=== PATIENT | female | born 1970 | race African-American/Black ===

== ENCOUNTER 2019-09-04 12:33 | Emergency (ER) | payer BC, SELFPAY ==
--- NOTE | ~2019-09-04 | XR_ITS ---
XR foot RT min 3V DATE: 09/04/2019 13:48 INDICATION: Stubbed toe 2 days ago. Right fifth toe pain. TECHNIQUE: 3 views of the right foot COMPARISON: None FINDINGS: There is a virtually nondisplaced transverse fracture of the fused middle and distal phalan x at the shaft of the middle phalanx. There is plantar and posterior calcaneal enthesopathy. No other fracture or dislocation, periosteal reaction or bone destruction. IMPRESSION: Fracture of the shaft of the middle phalanx of the fifth digit Reviewed, dictated and finalized at location A.
--- NOTE | 2019-09-04 12:56 | ED.GENADULT ---
HPI - General Adult General Chief complaint: Extremity Injury, Lower Stated complaint: Toe pain Time Seen by Provider: 09/04/19 13:11 Source: patient Mode of arrival: ambulatory Limitations: no limitations History of Present Illness HPI narrative: 49-year-old female patient presents to the [facility] with complaints of right pinky toe pain. Patient states that she stubbed her toe on her son's shoe about 2 days ago. Patient states that she tripped over the shoe. Patient states that since then the toe has been red, swollen and very painful. Patient states that she has been taking Tylenol and ibuprofen for the pain as well soaking it in warm Epson salts. Patient requesting an x-ray today. Related Data Home Medications Medication Instructions Recorded Confirmed No Home Medications 09/04/19 09/04/19 Allergies Allergy/AdvReac Type Severity Reaction Status Date / Time aspirin Allergy Intermediate CAUSES Verified 09/04/19 13:13 NOSE BLEEDS ibuprofen Allergy Intermediate Hives / Verified 09/04/19 13:13 Red Face Review of Systems Review of Systems: Narrative: CONSTITUTIONAL: Denies fever, chills, or sweats. EYES: Denies visual changes, redness, or discharge. ENT: Denies rhinorrhea, congestion, sore throat, or otalgia. CARDIOVASCULAR: Denies chest pain, palpitations, or edema. RESPIRATORY: Denies cough or dyspnea. GASTROINTESTINAL: Denies abdominal pain, nausea, vomiting, or diarrhea. GENITOURINARY: Denies dysuria or hematuria. SKIN: Denies rash or itching. MUSCULOSKELETAL: Denies back pain, joint pain, or myalgia. Positive right pinky toe pain x2 days NEUROLOGIC: Denies headache, numbness, or weakness. PSYCHIATRIC: Denies anxiety or depression. PMFSH Comments At the time of my signature I agree with nursing past medical history, surgical, social, and family history. There is no relevant family history pertinent to the presenting complaint. Exam Narrative: Exam Narrative: GENERAL: Well-appearing, well-nourished, and in no acute distress. HEAD: Normocephalic, atraumatic. EYES: PERRLA and EOMI. ENT: Nares clear, no rhinorrhea or epistaxis. Mucous membranes moist. NECK: Supple. No lymphadenopathy CHEST: Clear to auscultation. No respiratory distress. HEART: Regular rate and rhythm. No murmur heard. Normal peripheral pulses. ABDOMEN: Soft, nontender, nondistended, normal active bowel sounds. EXTREMITIES: Patient able to bear weight and ambulate but has pain to the pinky toe area on ambulation. Ecchymosis, erythema noted over the pinky toe on the right foot. No lesions, ulcers or break in skin integrity. The R foot is without obvious asymmetry or deformity when compared to the L foot. No bony step-off, tender to palpation over the right pinky toes, no tenderness over the midfoot or hindfoot or sole. Normal plantar/dorsiflexion, inversion/eversion. Distal motor and neurovascular status are intact SKIN: Warm, dry, no rash. NEURO: No focal deficits. Alert and oriented x3. Course Reevaluation(s) Reevaluation #1: Reevaluated patient after her x-ray had resulted. Notified patient that it does appear that the fifth digit at the distal end of her right foot is fractured. Discussed with patient that our plan of care today is we will elizabeth tape it and put her in an Ortho shoe. Patient refused stating that she has Ortho boots and shoes at home that she can use and does not need one here today. Offered to give patient some tramadol to help with the pain. Patient states that she does not like taking medication and will just add to the Tylenol. Discussed with patient I will give her a referral for Orth O that she can follow-up with especially if her symptoms do not appear to be getting better. Discussed with patient she should try and elevate the area and ice it and continue with patient take Tylenol for pain. Patient verbalized understanding of this and denies any other questions or concerns at this time. A copy of her x-ray resul
[2019-09-04 13:03] VITALS: BP 134/89; PULSE 80; RESP 18; TEMP 37; O2SAT 100
== END 2019-09-04 14:05 | disposition home or self-care (01) ==
PROVIDERS: Emergency Provider Nurse Practitioner Family; PCP Emergency Medicine
DX: S92.521A Displaced fracture of middle phalanx of right lesser toe(s), initial encounter for closed fracture (principal); R03.0 Elevated blood-pressure reading, without diagnosis of hypertension; W18.49XA Other slipping, tripping and stumbling without falling, initial encounter
CPT/HCPCS: 73630; 99213; G0463

== ENCOUNTER 2020-01-03 08:11 | Outpatient (CLI) | payer BC, SELFPAY ==
--- NOTE | ~2020-01-03 | MM_ITS ---
EXAMINATION: MM screening savi BI w hang HISTORY: Screening mammogram TECHNIQUE: Craniocaudal and mediolateral oblique 3-D tomosynthesis images were obtained and synthetic 2-D images were generated. CAD analysis was submitted and interpreted. COMPARISON: 12/21/2018 bilateral digital screening mammogram 09/24/2017 diagnostic left digital mammogram 09/19/2017, 09/01/2016 bilateral digital screening mammogram examinations BREAST PARENCHYMAL COMPOSITION: There are scattered areas of fibroglandular density. FINDINGS: There is no evidence of suspicious mass, calcification, or architectural distortion to sugg est malignancy in either breast. There has been no suspicious interval change. IMPRESSION: 1. No mammographic evidence of malignancy. 2. Recommend routine screening mammography in one year. BI-RADS Category 1: Negative Reviewed, dictated and finalized at location A.
== END 2020-01-03 08:12 | disposition home or self-care (01) ==
PROVIDERS: PCP Emergency Medicine; Visit Provider Obstetrics & Gynecology
DX: Z12.31 Encounter for screening mammogram for malignant neoplasm of breast (principal)
CPT/HCPCS: 77063; 77067

== ENCOUNTER 2020-01-05 15:46 | Emergency (ER) | payer BC, SELFPAY ==
--- NOTE | ~2020-01-05 | XR_ITS ---
XR toe 5th RT min 2V 01/05/2020 16:10 Indication: Right fifth toe pain Procedure: 5 views right fifth toe Comparison: 09/04/2019 Findings: There is a minimally displaced extra-articular fracture right fifth proximal phalanx. Mild soft tissue swelling. No other fracture is identified. Small degenerative calcaneal enthesophytes. Impression: 1: Minimally displaced extra-articular fracture right fifth proximal phalanx. Reviewed, dictated and finalized at location A. Impression: 1: Minimally displaced extra-articular fracture right fifth proximal phalanx.
[2020-01-05 15:50] VITALS: BP 140/89; PULSE 79; RESP 16; TEMP 36.5; O2SAT 100
--- NOTE | 2020-01-05 15:52 | ED.GENADULT ---
HPI - General Adult General Chief complaint: Extremity Injury, Lower Stated complaint: rt foot pinkie toe injury Time Seen by Provider: 01/05/20 15:52 Source: patient Mode of arrival: ambulatory Limitations: no limitations History of Present Illness HPI narrative: 49-year-old female patient presents to the [facility] with complaints of right pinky toe pain. Patient states that she fractured this toe back in July of this year. Patient states it was starting to feel better however she accidentally hit her cat tree yesterday. Patient states there is been very painful, swollen, red. Patient states she did ice it as well soaking and Epson salt and has been taking Tylenol for the pain. Patient states that she is concerned that she might of broken it again. Patient states she did have a boot that she was wearing with her last fracture but states that she got rid of it no longer has the boot available at this time. Related Data Home Medications Medication Instructions Recorded Confirmed No Home Medications 09/04/19 01/05/20 Allergies Allergy/AdvReac Type Severity Reaction Status Date / Time aspirin Allergy Intermediate CAUSES Verified 01/05/20 15:48 NOSE BLEEDS Review of Systems Review of Systems: Narrative: CONSTITUTIONAL: Denies fever, chills, or sweats. EYES: Denies visual changes, redness, or discharge. ENT: Denies rhinorrhea, congestion, sore throat, or otalgia. CARDIOVASCULAR: Denies chest pain, palpitations, or edema. RESPIRATORY: Denies cough or dyspnea. GASTROINTESTINAL: Denies abdominal pain, nausea, vomiting, or diarrhea. GENITOURINARY: Denies dysuria or hematuria. SKIN: Denies rash or itching. MUSCULOSKELETAL: Denies back pain, joint pain, or myalgia. Positive right pinky toe pain NEUROLOGIC: Denies headache, numbness, or weakness. PSYCHIATRIC: Denies anxiety or depression. [facility] Past Medical History Medical History (Updated 01/05/20 @ 16:29 by EYAD Barron) Anemia Anxiety Arthritis Bipolar disorder Depression Fibroids GERD (gastroesophageal reflux disease) Gestational hypertension Preeclampsia Surgical History Surgical History (Updated 01/05/20 @ 15:53 by EYAD Barron) H/O: hysterectomy Hx of tonsillectomy Comments At the time of my signature I agree with nursing past medical history, surgical, social, and family history. There is no relevant family history pertinent to the presenting complaint. Exam Narrative: Exam Narrative: GENERAL: Well-appearing, well-nourished, and in no acute distress. HEAD: Normocephalic, atraumatic. EYES: PERRLA and EOMI. ENT: Nares clear, no rhinorrhea or epistaxis. Mucous membranes moist. NECK: Supple. No lymphadenopathy CHEST: Clear to auscultation. No respiratory distress. HEART: Regular rate and rhythm. No murmur heard. Normal peripheral pulses. ABDOMEN: Soft, nontender, nondistended, normal active bowel sounds. EXTREMITIES: Patient able to bear weight and ambulate with increased pain to the right digit on the right foot. There is some swelling, ecchymosis and redness noted to the right pinky toe into the fifth metatarsal, no erythema, lesions, ulcers or break in skin integrity. The R foot is without obvious asymmetry or deformity when compared to the L foot. No bony step-off, tender to palpation over the right pinky toes, no tenderness to the midfoot or hindfoot or sole. Normal plantar/dorsiflexion, inversion/eversion. Distal motor and neurovascular status are intact SKIN: Warm, dry, no rash. NEURO: No focal deficits. Alert and oriented x3. Course Reevaluation(s) Reevaluation #1: Reevaluated patient after x-ray resulted. Discussed with her that she does have a fracture to the pinky toe. Discussed with her and will go ahead and refer her to Ortho she would like to follow-up with them. Discussed with her that she can also follow-up with her primary doctor she wants to as well. Discussed with her we will go ahead and put her in an order so
== END 2020-01-05 16:39 | disposition home or self-care (01) ==
PROVIDERS: Emergency Provider Nurse Practitioner Family; PCP Emergency Medicine
DX: S92.501A Displaced unspecified fracture of right lesser toe(s), initial encounter for closed fracture (principal); W22.8XXA Striking against or struck by other objects, initial encounter
CPT/HCPCS: 73660; 99214; G0463

== ENCOUNTER 2021-07-07 09:26 | Outpatient (CLI) | payer BC, SELFPAY ==
--- NOTE | ~2021-07-07 | XR_ITS ---
EXAMINATION: XR knee RT 2V DATE: 07/07/2021 09:57 INDICATION: Right knee pain TECHNIQUE: Two views of the right knee were obtained. COMPARISON: None. FINDINGS: Alignment is normal. No fracture or osteochondral lesion. There is mild tricompartmental os teoarthritis characterized by tiny marginal osteophytes. No joint effusion/synovitis. Soft tissues a re unremarkable. IMPRESSION: 1. No acute osseous abnormality. Reviewed, dictated and finalized at location B.
--- NOTE | ~2021-07-07 | XR_ITS ---
XR knee LT 2V 07/07/2021 09:57 INDICATION: Left knee pain PROCEDURE: 2 views left knee COMPARISON: No prior studies for comparison. FINDINGS: Fracture, dislocation or subluxation is not identified. The soft tissues appear within norm al limits. No foreign bodies are identified. IMPRESSION: 1: NO ACUTE BONE OR JOINT ABNORMALITY IDENTIFIED. Reviewed, dictated and finalized at location A.
== END 2021-07-07 09:27 ==
LOC: MICIMG 09:27
PROVIDERS: PCP Emergency Medicine; Visit Provider Emergency Medicine
DX: M25.569 Pain in unspecified knee (principal)
CPT/HCPCS: 73560

== ENCOUNTER → 2022-01-28 09:56 | Outpatient (CLI) | payer BC, SELFPAY ==
--- NOTE | ~2022-01-28 | MM_ITS ---
EXAMINATION: MM screening savi BI w hang HISTORY: Screening TECHNIQUE: Craniocaudal and mediolateral oblique 3-D tomosynthesis images were obtained and synthetic 2-D images were generated. CAD analysis was submitted and interpreted. COMPARISON: Comparison to multiple prior studies sequentially, with oldest reviewed study dated 08/13. BREAST PARENCHYMAL COMPOSITION: There are scattered areas of fibroglandular density. FINDINGS: There is no evidence of suspicious mass, calcification, or architectural distortion to sugg est malignancy in either breast. There has been no suspicious interval change. IMPRESSION: 1. No mammographic evidence of malignancy. 2. Recommend routine screening mammography in one year. BI-RADS Category 1: Negative Reviewed, dictated and finalized at location A.
== END ==
PROVIDERS: PCP Obstetrics & Gynecology; Visit Provider Obstetrics & Gynecology
DX: Z12.31 Encounter for screening mammogram for malignant neoplasm of breast (principal)
CPT/HCPCS: 77063; 77067

== ENCOUNTER 2023-02-28 11:56 | Observation (INO) | payer BC, SELFPAY ==
[2023-02-28] VITALS (7 sets, daily range): BP systolic 133–187; BP diastolic 81–112; PULSE 71–89; RESP 9–18; TEMP 36.2–36.4; O2SAT 98–100; BMI 40.0
--- NOTE | ~2023-02-28 | MR_ITS ---
MRI of the brain Clinical History: TIA Technique: Axial and sagittal T1-weighted images were acquired. These were followed by axial T2-weigh sierra, diffusion weighted, gradient, and FLAIR images. Following intravenous administration of 20 cc Mu ltiHance gadolinium, T1-weighted fat-sat imaging was performed in the axial and coronal planes. Findings: There is no abnormal signal in the brain parenchyma. No acute infarct, intracranial hemorrh age, or mass lesion. Ventricles and subarachnoid spaces are unremarkable. Orbits are unremarkable. Paranasal sinuses and m astoid air cells are clear. Major intracranial flow voids appear intact. Sagittal midline structures are intact. No abnormal postcontrast enhancement identified. IMPRESSION: Unremarkable exam. Reviewed, dictated and finalized at location M. REP IMPRESSION: Unremarkable exam.
--- NOTE | ~2023-02-28 | XR_ITS ---
XR chest 2V DATE: 02/28/2023 12:44 INDICATION: Weakness. Not feeling right. Hypertension. Visual impairment. TECHNIQUE: AP and lateral views COMPARISON: 08/05/2013 PA and lateral chest FINDINGS: Probable calcified pulmonary granuloma of right mid lung on AP view. The lungs are clear of infiltrate or consolidation. No pleural effusion or pulmonary vascular congestion or pneumothorax. Normal heart size. Mild aortic unfolding. No hilar or mediastinal enlargement. Mild thoracic levoscoliosis. Surgical clips, right upper quadrant, likely due to cholecystectomy. IMPRESSION: No active cardiopulmonary disease Reviewed, dictated and finalized at location B. ION STYLIST
--- NOTE | ~2023-02-28 | CT_ITS ---
EXAMINATION: CT brain wo con DATE: 02/28/2023 15:59 INDICATION: Strokelike symptoms. Spots in vision. TECHNIQUE: Computed tomography (CT) of the head was performed without intravenous contrast. The mA wa s adjusted according to patient size. Iterative reconstruction technique was employed. The dose-lengt h product was 605.33 mGy-cm. COMPARISON: None FINDINGS: There is no intracranial hemorrhage, acute infarction, or abnormal intracranial mass lesion . The ventricles are normal in size. The paranasal sinuses are clear. The mastoid air cells are mandeep l. IMPRESSION: 1. Normal brain. Reviewed, dictated and finalized at location A. DING ASSOCIATE IMPRESSION: 1. Normal brain.
--- NOTE | ~2023-02-28 | CT_ITS ---
EXAMINATION: CTA brain carotid DATE: 02/28/2023 18:08 INDICATION: visual changes TECHNIQUE: Computed tomographic angiography (CTA) of the head and neck was performed without and with 100 mL Omnipaque-350 intravenous contrast. CTA of the neck was performed with intravenous contrast. Automated exposure control and iterative reconstruction technique were employed. The dose-length prod uct was 1168.09 mGy-cm. Maximum intensity projection and volume rendered 3D-reconstructions were crea s[place] by the technologist on a separate workstation. COMPARISON: CT brain, same date. FINDINGS: CTA HEAD: No large vessel occlusion, aneurysm, high flow vascular malformation, nidus or extravasation. Hypopla stic left A1/A2 segments. Dominant anterior cerebral flow is from the right sided vessels. Persistent origin of the right posterior cerebral artery. Patent cerebral veins. Symmetric parenchymal en hancement. CTA NECK: Aortic arch and proximal great vessels: Left vertebral artery origin directly off the arch. Otherwise normal arch anatomy. Right common carotid, carotid bifurcation, and internal carotid artery: No plaque.There is 0% stenosi s of the proximal right internal carotid artery relative to normal distal artery lumen diameter (NASC ET criteria). Left common carotid, carotid bifurcation, and internal carotid artery: No plaque.There is 0% stenosis of the proximal left internal carotid artery relative to normal distal artery lumen diameter (NASCET criteria). Vertebral arteries: No significant plaque or stenosis. Other findings: None. IMPRESSION: No large vessel occlusion. No significant carotid or vertebral artery stenosis. Reviewed, dictated and finalized at location K. [employer]
--- NOTE | 2023-02-28 12:01 | ECG_ITS ---
Measurements Intervals [place] Rate: 74 P: 9 IA: 160 QRS: -12 QRSD: 81 T: 15 QT: 372 QTc: 413 Interpretive Statements SINUS RHYTHM LOW QRS VOLTAGE IN PRECORDIAL LEADS BORDERLINE R WAVE PROGRESSION, ANTERIOR LEADS BASELINE ARTIFACT- I, III, AVL BORDERLINE ECG NO PREVIOUS ECG AVAILABLE FOR COMPARISON Electronically Signed On 02-28-2023 12:15:15 PROPERTY CONDITION ASSESSOR by Alber Dietrich D.O.
[2023-02-28 12:20] LABS: Basophils Absolute Auto 0.1 K/mm3 (0.0-0.1); Basophils Percent Auto 1.1 % (0.2-1.2); Eosinophils Absolute Auto 0.1 K/mm3 (0-0.3); Eosinophils Percent Auto 2.8 % (0-4.4); Hematocrit 43.6 % (37.0-47.0); Hemoglobin 14.5 g/dL (12.0-15.0); Immature Granulocyte Absolute 0.01 K/mm3 (0.00-0.031); Immature Granulocyte Percent A 0.2 % (0-0.5); Lymphocytes Absolute Auto 2.04 K/mm3 (0.9-3.2); Lymphocytes Percent Auto 46.8 % (18.3-44.2); Mean Corpuscular HGB Conc 33.3 g/dl (32-36); Mean Corpuscular Hemoglobin 30.1 pg (26-34); Mean Corpuscular Volume 90.6 fl (80-100); Mean Platelet Volume 10.7 fl (7.4-10.4); Monocytes Absolute Auto 0.4 K/mm3 (0.1-0.6); Monocytes Percent Auto 8.3 % (2.6-8.5); Neutrophils Absolute Auto 1.8 K/mm3 (1.3-6.7); Neutrophils Percent Auto 40.8 % (45.5-73.1); Platelet Count Result 229 k/mm3 (150-375); Red Blood Count 4.81 M/mm3 (4.2-5.4); Red Cell Distribution Width 12.5 % (11.5-14.5); White Blood Count 4.4 K/mm3 (4.5-10.0)
[2023-02-28 12:26] LABS: Appearance Urine Cloudy (Clear); Bacteria Urine None Seen /hpf; Bilirubin Urine Negative (Negative); Blood Urine Negative (Negative); Color Urine Yellow (Yellow); Glucose Urine UA Negative (Negative); Ketones Urine Negative (Negative); Leukocyte Esterase Ur Negative LEU/UL (Negative); Nitrate Urine Negative (Negative); Non Pathogenic Casts 0-2; Protein Urine Negative (Negative); RBC Urine 0-2 /hpf (0-2); Specific Grav Ur 1.016 (1.001-1.035); Squamous Epithelial Cell Urine None seen /hpf (Few); Urobilinogen Urine 0.2 mg/dL (<2.0); WBC Urine 0-5 /hpf
[2023-02-28 12:29] LABS: Add Urine Microscopic? YES
[2023-02-28 12:32] LABS: Alanine Aminotransferase 36 U/L (6-35); Albumin Level 4.6 g/dL (3.5-5.1); Alkaline Phosphatase 105 U/L (38-126); Anion Gap 12 mmol/L (8-16); Aspartate Amino Transferase 35 U/L (14-36); Bilirubin,Total 1.3 mg/dL (0.2-1.3); Blood Urea Nitrogen 9 mg/dL (7-17); Calcium 10.1 mg/dL (8.4-10.2); Carbon Dioxide 26 mmol/L (22-30); Chloride 104 mmol/L (98-107); Estimated CRCL calculation 94 ml/min; Estimated Glomerular Filt Rate > 60; Glucose 86 mg/dL (65-110); Potassium 3.9 mmol/L (3.4-5.0); Sodium 142 mmol/L (137-145)
[2023-02-28 12:44] LABS: Troponin I < 0.012 ng/mL (0.000-0.034)
--- NOTE | 2023-02-28 16:38 | ED.GENADULT ---
HPI - General Adult General Chief complaint: Recheck/Abnormal Lab/Rx Stated complaint: htn Time Seen by Provider: 02/28/23 15:29 History of Present Illness HPI narrative: Patient is a 52-year-old female who presents ER with concerns for stroke-like symptoms. 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 Associated with difficulty writing and with making sense of math problems. She had to stop her class after the kids are asking what was going on and what was wrong. The nurse at her school found that her blood pressure was significantly elevated recommend she come to the ER to be seen. Patient reports visual disruption occurred for 2 hours. She is now resting comfortably and has no symptoms. She did not notice any lateralizing weakness or slurred speech. Related Data Home Medications Medication Instructions Recorded Confirmed No Home Medications 09/04/19 01/26/20 Allergies Allergy/AdvReac Type Severity Reaction Status Date / Time aspirin Allergy Intermediate CAUSES Verified 01/26/20 10:49 NOSE BLEEDS Review of Systems Review of Systems: All systems reviewed & are unremarkable except as noted in HPI and below Constitutional: Constitutional: Denies chills, Denies fatigue and Denies fever(s) Eyes: Eyes: Reports change in vision and Denies photophobia ENT: Denies nasal congestion and Denies sore throat Cardiovascular: Cardiovascular: Denies chest pain, Denies rapid heart rate and Denies radiating jaw, neck or arm pain Respiratory: Respiratory: Denies cough and Denies dyspnea Gastrointestinal: Gastrointestinal: Denies abdominal pain, Denies nausea and Denies vomiting Neurologic: Denies syncope, Denies headache(s), Denies focal weakness and Denies numbness Comments: Difficulty writing in thinking. [facility] Past Medical History Medical History Anemia Anxiety Arthritis Bipolar disorder Depression Fibroids GERD (gastroesophageal reflux disease) Gestational hypertension Preeclampsia Surgical History Surgical History H/O: hysterectomy (~2014) Hx of tonsillectomy Family History Family History Father Cancer Mother Arthritis Heart disease Exam Narrative: GENERAL: Well-appearing, well-nourished, and in no acute distress. HEAD: Normocephalic, atraumatic. EYES: PERRL and EOMI. ENT: Mucous membranes moist. CHEST: Clear to auscultation. No respiratory distress. HEART: Regular rate and rhythm. Normal peripheral pulses. ABDOMEN: Soft, nontender, nondistended. EXTREMITIES: Normal range of motion. No edema. SKIN: Warm, dry, no rash. NEURO: No upper or lower extremity drift. Cranial nerves symmetric Alert and oriented x3. PSYCH: Normal mood and affect. Course Course Emergency Course: Patient resting comfortably. Neurology consulted. Admit for observation and MRI. CTA without abnormality. Patient's blood pressures have been markedly improved while in the ER without intervention. Vital Signs Vital signs: Vital Signs Temperature 97.6 F 02/28/23 11:57 Pulse Rate 89 02/28/23 11:57 Respiratory Rate 16 02/28/23 11:57 Blood Pressure 187/112 H 02/28/23 11:57 Pulse Oximetry 100 02/28/23 11:57 Oxygen Delivery Room Air 02/28/23 11:57 Temperature 97.6 F 02/28/23 11:57 Pulse Rate 74 02/28/23 17:15 Respiratory Rate 17 02/28/23 17:15 Blood Pressure 145/94 H 02/28/23 17:15 Pulse Oximetry 99 02/28/23 17:15 Oxygen Delivery Room Air 02/28/23 11:57 Medical Decision Making Vital Signs Vital Signs: Vital Signs Temperature 97.6 F 02/28/23 11:57 Pulse Rate 89 02/28/23 11:57 Respiratory Rate 16 02/28/23 11:57 Blood Pressure 187/112 H 02/28/23 11:57 Pulse Oximetry 100 02/28/23 11:57 Oxygen D
--- NOTE | 2023-02-28 20:53 | PM.IMHP ---
H&P: HPI History of Present Illness Date/Time: 02/28/23 20:53 Chief Complaint: AMS Narrative: Chronic anemia, bipolar disorder, depression, fibroids, GERD gestational hypertension, preeclampsia. Patient presents to the emergency room after having episode of word-finding disturbance, altered mental status, denies vision changes headache lightheadedness. Patient has been her usual state of health up until this moment denies any focal weakness. Preliminary workup was significant for blood pressure upon presentation to emergency room systolic was in the 187/112. At the time of my visit patient was back to her usual. Preliminary workup has been essentially nonrevealing otherwise. Patient has been admitted for further evaluation management and treatment. EXAMINATION: CTA brain carotid DATE: 02/28/2023 18:08 INDICATION: visual changes TECHNIQUE: Computed tomographic angiography (CTA) of the head and neck was performed without and with 100 mL Omnipaque-350 intravenous contrast. CTA of the neck was performed with intravenous contrast. Automated exposure control and iterative reconstruction technique were employed. The dose-length product was 1168.09 mGy-cm. Maximum intensity projection and volume rendered 3D-reconstructions were created by the technologist on a separate workstation. COMPARISON: CT brain, same date. FINDINGS: CTA HEAD: No large vessel occlusion, aneurysm, high flow vascular malformation, nidus or extravasation. Hypoplastic left A1/A2 segments. Dominant anterior cerebral flow is from the right sided vessels. Persistent origin of the right posterior cerebral artery. Patent cerebral veins. Symmetric parenchymal enhancement. CTA NECK: Aortic arch and proximal great vessels: Left vertebral artery origin directly off the arch. Otherwise normal arch anatomy. Right common carotid, carotid bifurcation, and internal carotid artery: No plaque.There is 0% stenosis of the proximal right internal carotid artery relative to normal distal artery lumen diameter (NASCET criteria).? Left common carotid, carotid bifurcation, and internal carotid artery: No plaque.There is 0% stenosis of the proximal left internal carotid artery relative to normal distal artery lumen diameter (NASCET criteria). Vertebral arteries: No significant plaque or stenosis. Other findings: None. IMPRESSION: No large vessel occlusion. No significant carotid or vertebral artery stenosis. EXAMINATION: CT brain wo con DATE: 02/28/2023 15:59 INDICATION: Strokelike symptoms. Spots in vision. TECHNIQUE: Computed tomography (CT) of the head was performed without intravenous contrast. The mA was adjusted according to patient size. Iterative reconstruction technique was employed. The dose-length product was 605.33 mGy-cm. COMPARISON: None FINDINGS: There is no intracranial hemorrhage, acute infarction, or abnormal intracranial mass lesion. The ventricles are normal in size. The paranasal sinuses are clear. The mastoid air cells are normal. IMPRESSION: 1. Normal brain. XR chest 2V DATE: 02/28/2023 12:44 INDICATION: Weakness. Not feeling right. Hypertension. Visual impairment.? TECHNIQUE: AP and lateral views? COMPARISON: 08/05/2013 PA and lateral chest? FINDINGS: Probable calcified pulmonary granuloma of right mid lung on AP view. The lungs are clear of infiltrate or consolidation. No pleural effusion or pulmonary vascular congestion or pneumothorax. Normal heart size. Mild aortic unfolding. No hilar or mediastinal enlargement. Mild thoracic levoscoliosis. Surgical clips, right upper quadrant, likely due to cholecystectomy. IMPRESSION: No active cardiopulmonary disease? Review of Systems Review of Systems: speech disturbance, change in vision. Constitutional: Constitutional: Denies chills, Denies fatigue, Denies fever(s), Denies malaise and Denies weakness Eyes: Eyes: Denies change in vision ENT: Denies dysphagia,
--- NOTE | 2023-02-28 21:32 | ADMGEN ---
This patient, Tomasa Mcnair, was admitted to Medical Room 348-01. Patient/family oriented to hospital policies and general routines including ID bracelet, bed and alarms, visiting hours, pain management, procedures, bathroom and other care routines, personal items, smoking policy, room service/diet, and visiting hours. Information on how to activate the Rapid Response Team has been discussed. Patient/Family are encouraged to report perceived risks to care and to ask questions if they do not understand what they are told or what they should do.
[2023-03-01] VITALS (7 sets, daily range): BP systolic 131–143; BP diastolic 85–92; PULSE 66–85; RESP 16–18; TEMP 36.3–37.3; O2SAT 98–99
[2023-03-01] MEDS: ACETAMINOPHEN 325 MG TABLET 650 MG PO (04:49)
[2023-03-01] MEDS: LORazepam INJ (*CRX) 2 MG/ML VIAL 1 MG IV PUSH (07:20)
--- NOTE | 2023-03-01 10:59 | WPDNEURCNPN ---
Assessment and Plan Assessment and plan (1) Brain TIA: Code(s): G45.9 - Transient cerebral ischemic attack, unspecified Status: Acute (2) Hypertensive urgency: Code(s): I16.0 - Hypertensive urgency Status: Acute Plan Patient presenting with transient visual changes and confusion in the setting of elevated blood pressue, likely hypertensive emergency vs TIA. MRI brain is normal. Blood pressure has been more stable since admission. - Surface echocardiogram is pending - Start ASA 81mg daily - Check LDL and A1c; may need to start statin Consult date: 03/01/23 Reason for consult: Concern for TIA HPI: Tomasa Mcnair is a 52 year old female with a history of anxiety, depression, bipolar disorder presenting due to transient neurological symptoms. On 12/29 around 0930, patient developed colored spots in bilateral vision. She was teaching during class and also noted that she was having difficulty writing and making sense of math problems. She went to the school nurse who noted that her blood pressure was quite elevated, although unclear how high. Patient presented to [place] ED where her BP was initially 187/112. Blood pressure came down without any intervention and her symptoms eventually resolved. CT head and CTA brain/carotid were unrevealing. MRI brain was normal. She does not take any home medications. Patient currently feels okay. She does not feel 100% like herself, but denies having any of the symptoms that brought her in yesterday. Review of Systems Review of Systems: All systems reviewed & are unremarkable except as noted in HPI and below PMFSH Past Medical History Medical History Anemia Anxiety Arthritis Bipolar disorder Depression Fibroids GERD (gastroesophageal reflux disease) Gestational hypertension Preeclampsia Surgical History Surgical History H/O: hysterectomy (~2014) Hx of tonsillectomy Family History Family History Father Cancer Mother Arthritis Heart disease Social History Social History Smoking status: Never smoker Alcohol intake: current Substance use: never Substance use type: does not use Lack of Transportation: No Lack of Food: Never True Current Housing: I Have Housing Concerned About Future Housing: No Difficulty Paying Gas/Electric Bills: No Difficulty Paying for Meds: No Currently Unemployed: No Education: Bachelor's Degree Difficulty w/ Childcare or Family Care: No Spiritual care concerns: No Meds Home Medications and Allergies Home Medications Medication Instructions Recorded Confirmed Type No Home Medications 09/04/19 02/28/23 History Allergies Allergy/AdvReac Type Severity Reaction Status Date / Time aspirin Allergy Nose Bleed Verified 03/01/23 08:36 Vital Signs Vital Signs - 24 hr 02/28/23 11:57 02/28/23 16:07 02/28/23 16:16 Temperature 36.4 C Pulse Rate 89 72 71 Respiratory Rate 16 9 L 12 Blood Pressure 187/112 H 136/106 H 152/103 H Pulse Oximetry 100 100 98 Oxygen Delivery Room Air 02/28/23 17:15 02/28/23 17:30 02/28/23 19:35 Temperature Pulse Rate 74 79 77 Respiratory Rate 17 17 12 Blood Pressure 145/94 H 133/94 H 145/100 H Pulse Oximetry 99 99 100 Oxygen Delivery 02/28/23 22:31 03/01/23 00:00 03/01/23 04:00 Temperature 36.2 C L Pulse Rate 71 71 66 Respiratory Rate 18 Blood Pressure 152/81 H Pulse Oximetry 99 Oxygen Delivery 03/01/23 06:00 Temperature 36.3 C L Pulse Rate 79 Respiratory Rate 18 Blood Pressure 143/86 H Pulse Oximetry 98 Oxygen Delivery Exam Const: General: comfortable and no acute distress HENMT: Mouth: Yes moist mucous membranes Eyes: Pupils: Equal, round and reactive pupils present EOM: EOMs intact bilater
--- NOTE | 2023-03-01 12:00 | ECHO_ITS ---
Patient Info Name: Tomasa Mcnair Age: 52 years : 1970 Gender: Female Ht: 67 in Wt: 255 lbs BSA: 2.39 m2 HR: 86 bpm BP: 143 / 86 mmHg Technical Quality: Fair Exam Date: 03/01/2023 11:40 AM Exam Location: Echo Lab Exam Room: [facility] Patient Status: Outpatient Admit Date: 02/28/2023 Staff Ordering Physician: Lorin Corey APRN Organic Chemistry Professor: Nimco Gutierrez RDCS Attending Provider: Bambi Prasad DO Referring Physician: Leora MONSALVE; Exam Type: CA echo doppler w bubble study Study Info Indications - TIA R/O CSE Complete two-dimensional, color flow and Doppler transthoracic echocardiogram is performed with agitated saline. Contrast/Agitated Saline Contrast/Ag. Saline: Agitated Saline Amount: 20.00 ml Existing IV Access: Yes IV Access Condition: patent with no signs of infiltration Summary 1. Normal left ventricular size and thickness with good contractility of all segments. Estimated ejection fraction 65-70%. Normal diastolic function. 2. No significant valve disease. 3. Bubble study negative for intracardiac shunting during normal respiration and Valsalva maneuver. 4. Normal sinus rhythm. Left Ventricle Left ventricular chamber dimension is normal. Left ventricular systolic function is normal, estimated at Empty. There is no increased left ventricular wall thickness. Left ventricular septal wall motion is normal. The left ventricular diastolic function is normal. Right Ventricle Right ventricular chamber dimension is normal. Right ventricular systolic function is normal. Left Atria Left atrial chamber dimension is normal. Right Atria Right atrial chamber dimension is normal. Aortic Valve The aortic valve is trileaflet. There is no aortic valve sclerosis. There is no aortic valve stenosis. There is no aortic valve regurgitation. Pulmonic Valve The pulmonic valve is normal. There is no pulmonic valve stenosis. There is no pulmonic regurgitation. Mitral Valve The mitral valve has normal leaflets. There is no mitral valve stenosis. There is trace mitral valve regurgitation. Tricuspid Valve The tricuspid valve leaflets are normal. There is no significant tricuspid valve stenosis. There is trace tricuspid valve regurgitation. No pulmonary hypertension, estimated pulmonary arterial systolic pressure is Empty. Pericardium/Pleural The pericardium appears normal. There is no pericardial effusion. Inferior Vena Cava Normal inferior vena cava with >50% collapse upon inspiration consistent with Empty right atrial pressure, Empty. Aorta The aortic root size at the sinus of Valsalva is normal. The prox ascending aorta size is normal. Left Ventricular Outflow Tract Name Value Normal LVOT 2D LVOT Diameter 2.0 cm LVOT Doppler LVOT Peak Gradient 5 mmHg LVOT Mean Gradient 4 mmHg LVOT VTI 22 cm LVOT VTI/AV VTI Ratio 1.1 LVOT Stroke Volume 70 ml LVOT CO 17.9 l/min LVOT CI 7.5 l/min/m2 Pulmonic V
--- NOTE | 2023-03-01 15:38 | PM.IMPN ---
Progress Note: A&P Assessment and Plan (1) Brain TIA: Code(s): G45.9 - Transient cerebral ischemic attack, unspecified Status: Acute Assessment and Plan: Acute visual changes, headache, dizziness, nausea, and inability to preform standard, simple tasks Neurology consulted and recommendations are appreciated Brain MRI, CT head, CTA head and neck all negative Echo with bubble study pending read Add on lipid panel and hemoglobin A1c Start on aspirin 81 mg per Neurology May need statin depending on lipid panel (2) Hypertensive urgency: Code(s): I16.0 - Hypertensive urgency Status: Acute Assessment and Plan: Blood pressure 180s over 100s when checked by the school nurse and on admission. Blood pressures decreased without intervention Currently ranging 140s over 90s Suspect symptoms from hypertensive emergency Will start a low-dose amlodipine 5 mg daily On telemetry Patient will need PCP follow-up Plan Feeding:regular Analgesia:tylenol Thromboembolic prophylaxis: scd Ulcer prophylaxis: na Glycemic control: na Bowel regimen: na Lines: piv Antibiotics:na Disposition: likely d/c tomorrow if okay with neuro Subjective Date/time seen: 03/01/23 15:38 Interval history: This is a 52-year-old female with a past medical history of anxiety, bipolar disorder, depression, GERD, and anemia. She presented to [place] on 02/28 via personal car to be evaluated for dizziness and visual changes. 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 She says that whenever she would sit down the dizziness would slightly subsided but the vision changes remained. She describes the episode as feeling foggy. She also had some pressure at the back of her neck and head and shoulders. She said she was having difficulty doing simple calculations and writing on the board. The aide in her room noticed something was wrong and had her go to the nurse's office. Per the patient the nurse checked her blood pressure and was found to find high blood pressure of 180s over 100s. She says that she has had a similar episode like this at the end of last school year. The night prior she had had some corn dogs and hot dogs which sometimes make her feel poorly the following day. She says that her PCP has tried to put her on medications for her blood pressure in the past but they caused her added symptoms and so she is not keen on taking them. She is unsure of the name of the blood pressure medications for which she tried. She reports that she had preeclampsia with one of her pregnancies and a batchmaker recommended a tea which controlled her blood pressure allowing her to deliver at full term. She would prefer to use nonpharmacologic measures if able. I discussed with her the risks associated with uncontrolled hypertension including stroke, heart attack, and kidney disease. She is agreeable to start on a blood pressure medication but she mentions if there are side effects she will not continue with it. In the ED her labs were essentially normal. When she 1st presented her blood pressure was 187/112 and it decreased without intervention to 136/106 after a 4 hour. Neurology was consulted for concerns for potential TIA versus hypertensive emergency. Head and neck CTA was negative for large vessel occlusion and no significant carotid or vertebral artery stenosis. Brain MRI was essentially normal. CT head negative for acute stroke. I have ordered an echo with bubble study which is pending. Also added on a lipid and hemoglobin A1c panel. Patient to remain overnight for observation and likely will discharge home tomorrow. Review of Systems Review of Systems: All systems reviewed & are unremarkable except as noted in HPI and below Exam Narrative: General: well appearing, well developed, well nourished, appears stat
[2023-03-01] MEDS: ASPIRIN 81 MG ENTERIC TABLET PO (17:22)
--- NOTE | 2023-03-01 18:29 | PC.NURSE ---
Aspirin was prescribed for patient. It is listed as an allergy. [place] Setter spoke with patient before administration and she states her reaction was a nose bleed and that was many years ago. She stated she spoke with neurology and they told her this is a low dose aspirin so she is willing to give it a try.
[2023-03-01 21:11] LABS: Cholesterol 247 mg/dL (0-200); HDL Direct 32 mg/dL; Triglycerides 168 mg/dL (<150)
[2023-03-01 21:21] LABS: LDL Cholesterol Direct 171 mg/dL
[2023-03-01 21:23] LABS: Hemoglobin A1C 5.3 % (<5.7)
[2023-03-02] VITALS: PULSE 70
[2023-03-02 04:00] VITALS: PULSE 71
[2023-03-02 05:40] VITALS: BP 118/80; PULSE 72; RESP 18; TEMP 36.3; O2SAT 99
[2023-03-02 05:47] LABS: Eosinophils Absolute Auto 0.1 K/mm3 (0-0.3); Eosinophils Percent Auto 3.4 % (0-4.4); Hematocrit 40.8 % (37.0-47.0); Hemoglobin 13.5 g/dL (12.0-15.0); Lymphocytes Absolute Auto 1.73 K/mm3 (0.9-3.2); Lymphocytes Percent Auto 44.6 % (18.3-44.2); Mean Corpuscular HGB Conc 33.1 g/dl (32-36); Mean Corpuscular Volume 90.7 fl (80-100); Mean Platelet Volume 10.4 fl (7.4-10.4); Monocytes Absolute Auto 0.3 K/mm3 (0.1-0.6); Monocytes Percent Auto 7.7 % (2.6-8.5); Neutrophils Absolute Auto 1.7 K/mm3 (1.3-6.7); Neutrophils Percent Auto 43.3 % (45.5-73.1); Platelet Count Result 199 k/mm3 (150-375); Red Cell Distribution Width 12.4 % (11.5-14.5); White Blood Count 3.9 K/mm3 (4.5-10.0)
[2023-03-02 06:00] LABS: Alanine Aminotransferase 29 U/L (6-35); Alkaline Phosphatase 89 U/L (38-126); Anion Gap 7 mmol/L (8-16); Aspartate Amino Transferase 26 U/L (14-36); Bilirubin,Total 1.1 mg/dL (0.2-1.3); Blood Urea Nitrogen 11 mg/dL (7-17); Calcium 9.7 mg/dL (8.4-10.2); Carbon Dioxide 27 mmol/L (22-30); Chloride 104 mmol/L (98-107); Cholesterol 242 mg/dL (0-200); Estimated CRCL calculation 76 ml/min; Estimated Glomerular Filt Rate > 60; Glucose 97 mg/dL (65-110); HDL Direct 32 mg/dL; Magnesium 2.1 mg/dL (1.6-2.3); Sodium 138 mmol/L (137-145); Triglycerides 119 mg/dL (<150)
[2023-03-02 06:11] LABS: LDL Cholesterol Direct 171 mg/dL
[2023-03-02 08:00] VITALS: PULSE 71
[2023-03-02 08:55] VITALS: BP 142/89
[2023-03-02] MEDS: amLODIPine BESYLATE 5 MG TABLET PO (08:55)
[2023-03-02] MEDS: ASPIRIN 81 MG ENTERIC TABLET PO (08:55)
--- NOTE | 2023-03-02 09:19 | PM.DS ---
DS: Admitting Diagnosis Discharge Date 03/02/23 Admitting Diagnosis Hypertensive Urgency, TIA DS: Discharge Diagnosis Discharge Diagnosis (1) Brain TIA: Code(s): G45.9 - Transient cerebral ischemic attack, unspecified Status: Acute Assessment and Plan: Neurology has consulted and I have discussed care with them today. CHADS score 2. Will need aspirin, statin, and 30 day event monitor at discharge. Close f/u with PCP. (2) Hypertensive urgency: Code(s): I16.0 - Hypertensive urgency Status: Acute Assessment and Plan: Improved. Started amlodipine. Discussed side effects. Recommend DASH diet, lifestyle interventions. (3) Hyperlipidemia: Code(s): E78.5 - Hyperlipidemia, unspecified Status: Acute Assessment and Plan: Atorvastatin 40mg added today. Plan As noted above. DC with asa, statin, norvasc. 30 day event monitor to assess for occult atrial fibrillation. Keep BP log. Close f/u pcp. DS: Summary Hospital Course Reason for hospitalization: Visual changes, TIA, HTN urgency Hospital Course: Patient presents with acute onset of visual changes and mental status changes in the setting of hypertensive urgency with question of urgency versus TIA. Head CT, CTA neck, and MRI brain no acute findings. Echocardiogram with 70% ef, no acute findings. Neuro symptoms resolved. On day of discharge the patient is in no distress. Is tolerating asa and norvasc well. VS are stable. We have discussed lifestyle changes and medication recommendations at length and in detail. Patient is interested moreso in lifestyle choices than medications but notes there is certainly a current need to proceed medically. Status at Discharge Cognitive/behavioral status at discharge: AO4, no deficits. Time Spent with Patient Time attestation: Total time spent providing and/or coordinating discharge services: >30 minutes. Exam Narrative: GENERAL APPEARANCE: Appears to be in no acute distress. HEAD: normocephalic atraumatic EYES: PERRL, EOMI. Vision grossly intact. ENT: Hearing grossly intact, no nasal discharge NECK: Neck supple, trachea midline. CARDIAC: Normal S1/S2. Rhythm is regular. No murmurs, rubs, or gallops. No cyanosis or pallor. Extremities are warm and well perfused. LUNGS: Clear to auscultation without rales, rhonchi, wheezing or diminished breath sounds. Respirations even and unlabored. ABDOMEN: BS positive x 4 quadrants. Soft, nondistended, nontender. No guarding or rebound. MSK: No joint tenderness/swelling, fair strength in all extremities. PERIPHERAL VASCULAR: Peripheral pulses palpable. Normal perfusion, cap refill <2 seconds. No edema. NEURO: Follows commands. No focal deficits. SKIN: [place] without lesions or eruptions. PSYCH: Stable, no paranoia or delusional thinking. DS: Data Data Completed and Pending Labs on day of discharge: Labs from last 24 hours 03/02/23 03/01/23 05:34 20:13 WBC 3.9 L RBC 4.50 Hgb 13.5 Hct 40.8 MCV 90.7 MCH 30.0 MCHC 33.1 RDW 12.4 Plt Count 199 MPV 10.4 Immature Gran % (Auto) 0.0 Neut % (Auto) 43.3 L Lymph % (Auto) 44.6 H [place] % (Auto) 7.7 Eos % (Auto) 3.4 Baso % (Auto) 1.0 Lymph # (Auto) 1.73 [place] # (Auto) 0.3 Eos # (Auto) 0.1 Baso # (Auto) 0.0 Abs Immat Gran (auto) 0.00 Absolute Neuts (auto) 1.7 Absolute Nucleated RBC 0.0 Nucleated RBC % 0.0 Sodium 138 Potassium 4.0 Chloride 104 Carbon Dioxide 27 Anion Gap 7 L BUN 11 Creatinine 1.00 Estim Creat Clear Calc 76 Estimated GFR > 60 Glucose 97 Hemoglobin A1c 5.3 Calcium 9.7 Magnesium 2.1 Total Bilirubin 1.1 AST 26 ALT 29 Alkaline Phosphatase 89 Total Protein 7.0 Albumin 4.0 Triglycerides 119 168 H Cholesterol 242 H 247 H LDL Cholesterol Direct 171 171 HDL Direct 32 32 Imaging Radiologist's impression: Chest X-Ray? 02/28/23 12:45 IMPRESSION: No active cardiop
== END 2023-03-02 13:43 | disposition home or self-care (01) ==
LOC: ANHED 18:46 → ANH3MED 03-02 12:34 → ANH3MEDSUR 03-05 11:47
PROVIDERS: Nurse Practitioner Acute Care; Admitting Provider Internal Medicine; Emergency Provider Emergency Medicine; PCP Emergency Medicine; Visit Provider Internal Medicine
DX: G45.9 Transient cerebral ischemic attack, unspecified (principal); I16.0 Hypertensive urgency; E78.5 Hyperlipidemia, unspecified; D64.9 Anemia, unspecified; F41.9 Anxiety disorder, unspecified; M19.90 Unspecified osteoarthritis, unspecified site; F31.9 Bipolar disorder, unspecified; K21.9 Gastro-esophageal reflux disease without esophagitis; F10.90 Alcohol use, unspecified, uncomplicated; Z82.61 Family history of arthritis; Z82.49 Family history of ischemic heart disease and other diseases of the circulatory system; Z79.82 Long term (current) use of aspirin; Z79.899 Other long term (current) drug therapy
CPT/HCPCS: 36415; 70450; 70496; 70498; 70553; 71046; 80053; 80061; 81001; 83036; 83735; 84484; 85025; 93005; 93306; 96374; 96375; 99285; A9270; A9577; G0378; J2060; Q9967

== ENCOUNTER 2023-07-26 16:59 | Emergency (ER) | payer OTHER, BC, SELFPAY ==
--- NOTE | ~2023-07-26 | XR_ITS ---
EXAMINATION: XR elbow RT min 3V DATE: 07/26/2023 17:24 INDICATION: Right elbow pain and swelling. Fall. TECHNIQUE: 4 views of right elbow were obtained. COMPARISON: None. FINDINGS: Bone alignment is normal. No fracture. Joint spaces are normal. No elbow joint effusion. Th ere is soft tissue swelling overlying olecranon. IMPRESSION: 1. No fracture. Reviewed, dictated and finalized at location A. IMPRESSION: 1. No fracture.
[2023-07-26 17:12] VITALS: BP 122/103; PULSE 82; RESP 18; TEMP 36.7; O2SAT 99
--- NOTE | 2023-07-26 17:15 | ED.UPPEXIN ---
HPI - Extremity Injury (Upper) General Chief Complaint: Fall Stated Complaint: FALL Time Seen by Provider: 07/26/23 17:15 Source: patient Mode of arrival: ambulatory Limitations: no limitations History of Present Illness HPI narrative: Patient is a 53-year-old female who presents with right arm pain after fall on the 2nd. Patient has been taking ibuprofen and Tylenol and used ice. Patient states she still has normal range of motion. Denies pain with movement does report pain to elbow if touching it. States arm feels tight due to swelling. Related Data Home Medications Medication Instructions Recorded Confirmed amlodipine 10 mg tablet 10 mg PO DAILY 07/26/23 07/26/23 paroxetine HCl 20 mg tablet 20 mg PO DAILY 07/26/23 07/26/23 Allergies Allergy/AdvReac Type Severity Reaction Status Date / Time aspirin AdvReac Intermediate Nose Bleed Verified 07/26/23 17:26 Review of Systems Review of Systems: All systems reviewed & are unremarkable except as noted in HPI and below Constitutional: Constitutional: Denies body ache(s), Denies chills, Denies fatigue, Denies fever(s), Denies headache(s), Denies malaise and Denies weakness Eyes: Eyes: Denies blurry vision, Denies irritation and Denies loss of vision ENT: Denies otalgia, Denies headache(s), Denies nasal discharge, Denies sinus pain and Denies sore throat Cardiovascular: Cardiovascular: Denies chest pain, Denies irregular heart rhythm and Denies dyspnea Respiratory: Respiratory: Denies dyspnea Gastrointestinal: Gastrointestinal: Denies abdominal pain, Denies melena, Denies hematochezia, Denies diarrhea, Denies nausea and Denies vomiting Musculoskeletal: Musculoskeletal: Denies back pain, Denies myalgias and Reports arthralgias Integumentary/Breasts: Skin/Breast: Denies pruritus and Denies rash Neurologic: Denies headache(s), Denies loss of vision and Denies weakness Psychiatric: Psychiatric: Reports no additional psychiatric complaints Endocrine: Endocrine: Denies fatigue PMFSH Past Medical History Medical History Anemia Anxiety Arthritis Bipolar disorder Depression Fibroids GERD (gastroesophageal reflux disease) Gestational hypertension Preeclampsia Surgical History Surgical History H/O: hysterectomy (~2014) Hx of tonsillectomy Family History Family History Father Cancer Mother Arthritis Heart disease Social History Social History Smoking status: Never smoker Alcohol intake: current Substance use: never Substance use type: does not use Lack of Transportation: No Lack of Food: Never True Current Housing: I Have Housing Concerned About Future Housing: No Difficulty Paying Gas/Electric Bills: No Difficulty Paying for Meds: No Currently Unemployed: No Education: Bachelor's Degree Difficulty w/ Childcare or Family Care: No Spiritual care concerns: No Comments At time of signature, agree with nursing past medical, surgical, social and family history. There is no relevant family history pertinent to the presenting complaint. Exam Const: General: cooperative, healthy appearing, comfortable, no acute distress and well nourished Nutritional Appearance: well nourished Orientation/consciousness: patient oriented x3 Limitations: no limitations HENMT: Head: normal to inspection, normocephalic and atraumatic Ears: hearing grossly normal bilaterally and external ears normal Face/Nose/Sinus: Normal external nose present, normal facial exam and face symmetric Face and sinus: normal facial exam and face symmetric Mouth: Yes lip normal Eyes: General: appearance normal, both eyes and all related structures Alignment and Position: alignment normal and position normal Periorbital: periorbital findings nor
[2023-07-26 18:33] VITALS: BP 150/94
== END 2023-07-26 18:33 | disposition home or self-care (01) ==
PROVIDERS: Emergency Provider Nurse Practitioner Family; PCP Emergency Medicine
DX: M70.21 Olecranon bursitis, right elbow (principal); S46.911A Strain of unspecified muscle, fascia and tendon at shoulder and upper arm level, right arm, initial encounter; W19.XXXA Unspecified fall, initial encounter; M19.90 Unspecified osteoarthritis, unspecified site; K21.9 Gastro-esophageal reflux disease without esophagitis; F41.9 Anxiety disorder, unspecified; F32.A Depression, unspecified
CPT/HCPCS: 73080; 99213; A4565; G0463

== ENCOUNTER 2023-07-28 09:35 | Outpatient (CLI) | payer BC, SELFPAY ==
--- NOTE | ~2023-07-28 | US_ITS ---
EXAMINATION: US abdomen complete DATE: 07/28/2023 10:18 INDICATION: Liver disease. TECHNIQUE: Multiple grayscale and Doppler ultrasound images of the abdomen were obtained. COMPARISON: None FINDINGS: The visualized portions of the head, body, and tail of the pancreas are normal. There is di ffuse hepatic steatosis. There is normal flow in main portal vein. The gallbladder is absent. The com mon duct is normal and measures 4 mm. The spleen is normal in size. The kidneys are normal in size. A bdominal aorta is normal in caliber. Inferior vena cava is normal. IMPRESSION: 1. Diffuse hepatic steatosis. Reviewed, dictated and finalized at location E.
== END 2023-07-28 09:36 | disposition home or self-care (01) ==
PROVIDERS: PCP Emergency Medicine; Visit Provider Emergency Medicine
DX: K76.0 Fatty (change of) liver, not elsewhere classified (principal)
CPT/HCPCS: 76700

== ENCOUNTER 2023-10-19 13:27 | Outpatient (CLI) | payer BC, SELFPAY ==
--- NOTE | ~2023-10-19 | MM_ITS ---
EXAMINATION: MM screening savi BI w hang HISTORY: Screening mammogram, family history of breast cancer in her mother. TECHNIQUE: Craniocaudal and mediolateral oblique 3-D tomosynthesis images were obtained and synthetic 2-D images were generated. CAD analysis was submitted and interpreted. COMPARISON: 01/28/2022, 01/03/2020, 12/21/2018 BREAST PARENCHYMAL COMPOSITION:Not Dense. The breasts are almost entirely fatty FINDINGS: No suspicious mass, calcification, or architectural distortion are identified in either willie ast to suggest malignancy. There has been no suspicious interval change. IMPRESSION: No mammographic evidence of malignancy. Recommend routine screening mammography in one year. BI-RADS Category 1: Negative Reviewed, dictated and finalized at location .
== END 2023-10-19 13:28 | disposition home or self-care (01) ==
LOC: ANHIMG 13:30
PROVIDERS: PCP Emergency Medicine; Visit Provider Emergency Medicine
DX: Z12.31 Encounter for screening mammogram for malignant neoplasm of breast (principal)
CPT/HCPCS: 77063; 77067

== ENCOUNTER 2024-04-30 08:52 | Emergency (ER) | payer BC, SELFPAY ==
[2024-04-30 09:04] VITALS: BP 118/82; PULSE 88; RESP 16; TEMP 36.9; O2SAT 99
--- NOTE | 2024-04-30 09:32 | ED_ITS ---
HPI - Nausea/Vomiting/Diarrhea General Chief complaint: Nausea/Vomiting/Diarrhea Stated complaint: vomiting,fever Time Seen by Provider: 04/30/24 09:34 Source: patient and RN notes reviewed Mode of arrival: ambulatory Limitations: no limitations History of Present Illness HPI Narrative: 54-year-old female presents with concern for exposure influenza fever, nausea, vomiting, nasal congestion, rhinorrhea, cough that started yesterday. She reports she has been trying to sip fluids to stay hydrated. She has been alternating Tylenol and ibuprofen MD elicited complaint: nausea, vomiting and diarrhea Related Data Home Medications ?Medication ?Instructions ?Recorded ?Confirmed ?Last Taken ?Type amlodipine 10 mg tablet 10 mg PO DAILY 07/26/23 07/26/23 Unknown History paroxetine HCl 20 mg tablet 20 mg PO DAILY 07/26/23 07/26/23 Unknown History Allergies Allergy/AdvReac Type Severity Reaction Status Date / Time aspirin AdvReac Intermediate Nose Bleed Verified 04/30/24 09:27 Review of Systems Review of Systems: CONSTITUTIONAL: Reports malaise, chills, sweats, fever. ENT: Reports rhinorrhea, congestion CARDIOVASCULAR: Denies chest pain, palpitations, or edema. RESPIRATORY: Reports cough. Denies dyspnea. GASTROINTESTINAL: Denies abdominal pain, bloody, or mucous stools.. Reports nausea, vomiting, diarrhea GENITOURINARY: Denies dysuria or hematuria. MUSCULOSKELETAL: Reports myalgia. NEUROLOGIC: Denies headache. All systems reviewed & are unremarkable except as noted in HPI and below PMFSH Past Medical History Medical History Anemia Anxiety Arthritis Bipolar disorder Depression Fibroids GERD (gastroesophageal reflux disease) Gestational hypertension Preeclampsia Surgical History Surgical History H/O: hysterectomy (~2014) Hx of tonsillectomy Family History Family History Father Cancer Mother Arthritis Heart disease Social History Social History Smoking status: Never smoker Alcohol intake: current Substance use: never Substance use type: does not use Lack of Transportation: No Lack of Food: Never True Current Housing: I Have Housing Concerned About Future Housing: No Difficulty Paying Gas/Electric Bills: No Difficulty Paying for Meds: No Currently Unemployed: No Education: Bachelor's Degree Difficulty w/ Childcare or Family Care: No Spiritual care concerns: No Comments At time of signature, agree with nursing past medical, surgical, social and family history. There is no relevant family history pertinent to the presenting complaint Exam Narrative: GENERAL: Well-appearing, well-nourished, and in no acute distress. HEAD: Normocephalic, atraumatic. EYES: PERRLA, conjunctivae clear, and EOMI. ENT: Nares clear, turbinates edematous and erythematous, clear discharge. Mucous membranes moist. TM pearly philip with dull light reflex bilaterally; no tragal tenderness. Oropharynx erythematous without lesions. Tonsils enlarged and without exudate, no drooling, no hoarseness, no trism NECK: Supple. No lymphadenopathy CHEST: Speaks in full sentences. No respiratory distress. HEART: Regular rate and rhythm. ABDOMEN: Soft, flat, nondistended, nontender. No guarding, rebound tenderness, or rigidity. No pulsatile masses. Bowel sounds present in all four quadrants. No organomegaly. Negative Sweeney?s sign. No periumbilical tenderness. No Supra public tenderness or distension. Good femoral pulses bilaterally. No hernia noted. No scars or surface trauma. SKIN: Warm, dry, no rash. NEURO: Alert and oriented x3. PSYCH: Normal mood and affect Course Course Emergency Course: Patient is aware of diagnosis, understands and agrees to treatment plan. Anticipatory guidance given. Patient agrees to follow-up as directed and is aware of reasons to seek care at the emergency department. Portions of this record may have been created with voice recognition software Level of Care: Express Care Visit Vital Signs Vital signs: Vital Signs Temperature 98.5 F 04/30/24 09:04 Pulse Rate 88 04/30/24 09:04 Respiratory Rate 16 04/30/24 09:04 Blood Pressure 118/82 04/30/24 09:04 Pulse Oximetry 99 04/30/24 09:04 Oxygen Delivery Room Air 04/30/24 09:04 Temperature 98.5 F 04/30/24 09:04 Pulse Rate 88 04/30/24 09:04 Respiratory Rate 16 04/30/24 09:04 Blood Pressure 118/82 04/30/24 09:04 Pulse Oximetry 99 04/30/24 09:04 Oxygen Delivery Room Air 04/30/24 09:04 Reviewed. MDM - Nausea/Vomiting/Diarrhea MDM Narrative Medical decision making narrative: I evaluated this patient in the [facility] care. History is obtained from patient who is an independent historian and physical exam was performed.? Available medical records were reviewed. ? Exam findings and relevant testing show no acute concerns or changes; patient is non-toxic appearing and is in no distress. ? Differential diagnosis and treatment plan were discussed with the patient. Patient agrees with discussion and after shared medical decision making agrees with plan of care. All questions were answered to the patient's satisfaction. Patient is appropriate for outpatient treatment and follow-up. Critical Care Time Critical Care Time Critical Care Time: No Discharge Plan Discharge Clinical Impression: Influenza-like illness Patient Disposition: Home, Self-Care Condition: Stable Instructions: Viral Syndrome (ED) Additional Instructions: -Take strict precautions to prevent the spread of your virus. Be diligent about covering your cough (even when you are alone) and washing your hands frequently. -You may contagious until you have been symptom and/or fever free for 24 hours without fever reducing medicine -Alternate Ibuprofen and Tylenol for pain and fever relief (per package directions) -Some Cough medicines may make you drowsy, do not take it if you have to make important decisions, drive, or work. -Drink plenty of fluid - drink fluid with electrolytes such as Gatorade or other oral re-hydration solution. Avoid caffeine, which can make dehydration worse. -Get plenty of rest to help your body heal. -Use a cool mist humidifier for chest and nasal congestion. -Eat RAW honey or use cough drops to ease throat discomfort -Do not smoke or expose children to secondhand smoke -Wash your hands frequently. -Please follow-up with your primary care doctor in the next 1-2 days if your symptoms do not improve. -If you have any worsening of symptoms or any other concerns please go to the ED immediately. -Please take medications as prescribed and continue taking your home medications as usual. Patient Language: Telugu Prescriptions: New pseudoephedrine HCl [12 Hour Decongestant] 120 mg tablet extended release 120 mg PO Q12H PRN (Reason: nasal congestion) Qty: 20 0RF promethazine-DM 6.25-15 mg/5 mL syrup 5 ml PO Q4-6H PRN (Reason: cough) Qty: 120 0RF No Action amlodipine 10 mg tablet 10 mg PO DAILY paroxetine HCl 20 mg tablet 20 mg PO DAILY prednisone 20 mg tablet 40 mg PO DAILY 5 Days Qty: 10 0RF atorvastatin [Lipitor] 40 mg tablet 40 mg PO DAILY Qty: 30 0RF Follow-up/Referrals: Jayy Harrison MD [Primary Care Provider] - Stand Alone Forms: Work/School Release IP Time of Disposition: 09:43
[2024-04-30 09:56] LABS: EDCOVIDSCREEN Negative (Negative); EDINFLUASCREEN Negative (Negative); EDINFLUBSCREEN Negative (Negative); EDSTREPNEGPOS1 Negative (Negative)
== END 2024-04-30 09:55 | disposition home or self-care (01) ==
PROVIDERS: Emergency Provider Nurse Practitioner; PCP Emergency Medicine
DX: J11.1 Influenza due to unidentified influenza virus with other respiratory manifestations (principal); Z20.822 Contact with and (suspected) exposure to COVID-19; M19.90 Unspecified osteoarthritis, unspecified site; K21.9 Gastro-esophageal reflux disease without esophagitis; F32.A Depression, unspecified; F41.9 Anxiety disorder, unspecified
CPT/HCPCS: 87081; 87426; 87804; 87880; 99213; G0463

== ENCOUNTER 2024-10-27 09:58 | Outpatient (CLI) | payer BC, SELFPAY ==
--- NOTE | ~2024-10-27 | MM_ITS ---
EXAMINATION: MM screening savi BI w hang HISTORY: Screening TECHNIQUE: Craniocaudal and mediolateral oblique 3-D tomosynthesis images were obtained and synthetic 2-D images were generated. CAD analysis was submitted and interpreted. COMPARISON: Comparison to multiple prior studies sequentially, with oldest reviewed study dated 09/2017. BREAST PARENCHYMAL COMPOSITION: Not Dense: The breasts are almost entirely fatty. FINDINGS: There is no evidence of suspicious mass, calcification, or architectural distortion to sugg est malignancy in either breast. There has been no suspicious interval change. IMPRESSION: 1. No mammographic evidence of malignancy. 2. Recommend routine screening mammography in one year. BI-RADS Category 1: Negative Reviewed, dictated and finalized at location B.
--- OUTSIDE RECORDS SUMMARY | 2024-10-27 10:05 | XMS_ITS | Clinical Summary ---
Author Organization [facility] Address [place] [address] Care Team Providers [facility] Name Role Phone Jayy Harrison MD Primary Care Provider [phone] Allergies Active Allergy Reactions Criticality Noted Date Comments Aspirin Other (See comments) Low 07/21/2013 Nose bleeds Medications No known medications Active Problems No known active problems Surgical History Surgery Date Site/Laterality Comments HYSTERECTOMY Medical History Medical History Date Comments Anemia Family History Medical History Relation Name Comments Cancer Father Gout Father Gout Mother Heart disease Mother Relation Name Status Comments Father Mother Social History Tobacco Use Types Packs/Day Years Used Date Smoking Tobacco: Never Personal Safety Answer Date Recorded Getting School Help Needed Not on file 04/18 Comments Unknown Sex and Gender Information Value Date Recorded Sex Assigned at Not on file Legal Sex Female 10:20 AM CDT Gender Identity Not on file Sexual Orientation Not on file Obstetrics History Plan of Treatment Health Maintenance Due Date Last Done Comments Breast Cancer Screening-Mammogram 1970 Colon Cancer Screening-Colonoscopy 1970 Depression Screening 1970 Hepatitis C Screening 1970 Hepatitis B Screening 1988 Regular Well Visit/Exam 18-64 1988 DTaP/Tdap/Td Vaccine (1 - Tdap) 11/20/2019 11/19/2019 Zoster Vaccine (1 of 2) 2020 Covid-19 Vaccine (3 - 2023-2 5 season) 2023 12/03/2020, 11/11/2020 Influenza Vaccine (Season Ended) 2024 Pneumococcal vaccine <65 Aged Out No longer eligible based on patient's age to complete this topic Insurance [employer] COMPENSATION GENERIC [facility] WORKERS COMPENSATION GENERIC Care Teams Regional [facility] Relationship Specialty Start Date End Date Jayy Harrison MD [address] [place] [address] PCP - General Family Medicine 07/14/21
--- OUTSIDE RECORDS SUMMARY | 2024-10-27 10:05 | XMS_ITS | Continuity of Care Document ---
Author Organization [facility] Address [address] [place] [address] [place] [address] Phone Care Team Providers Care Union Laborer Name Role Phone Jayy Harrison MD Unavailable Unavailable Allergies, Adverse Reactions, Alerts Substance Reaction Status Criticality aspirin Active No Information Medications Medication Instructions Dosage Effective Dates (start - stop) Status Comments Norvasc 10 mg tablet take 1 tablet by oral route every day 10 MG - Active Lipitor 40 mg tablet take 1 tablet by oral route every day 40 MG - Active eszopiclone 1 mg tablet take 1 tablet by oral route every day at bedtime as needed 1 MG - Active PRN qhs for insomnia. Avoid driving or operate machines aspirin 81 mg tablet,delayed release take 1 tablet by oral route every day 81 MG - Active Procedures Procedure Date OFFICE/OUTPATIENT VISIT, EST OFFICE/OUTPATIENT VISIT, EST PREV VISIT, EST, AGE 40-64 OFFICE/OUTPATIENT VISIT, EST OFFICE/OUTPATIENT VISIT, EST OFFICE/OUTPATIENT VISIT, EST OFFICE/OUTPATIENT VISIT, EST OFFICE/OUTPATIENT VISIT, EST PREV VISIT, EST, AGE 40-64 OFFICE/OUTPATIENT VISIT, EST OFFICE/OUTPATIENT VISIT, EST OFFICE/OUTPATIENT VISIT, EST PREV VISIT, EST, AGE 40-64 OFFICE/OUTPATIENT VISIT, EST May-06-2021 OFFICE/OUTPATIENT VISIT, EST PREV VISIT, EST, AGE 40-64 OFFICE/OUTPATIENT VISIT, EST OFFICE/OUTPATIENT VISIT, EST OFFICE/OUTPATIENT VISIT, EST PREV VISIT, EST, AGE 40-64 OFFICE/OUTPATIENT VISIT, EST PREV VISIT, EST, AGE 40-64 OFFICE/OUTPATIENT VISIT, EST OFFICE/OUTPATIENT VISIT, EST OFFICE/OUTPATIENT VISIT, EST OFFICE/OUTPATIENT VISIT, EST OFFICE/OUTPATIENT VISIT, EST PREV VISIT, EST, AGE 40-64 OFFICE/OUTPATIENT VISIT, EST OFFICE/OUTPATIENT VISIT, EST OFFICE/OUTPATIENT VISIT, EST PREV VISIT, EST, AGE 40-64 OFFICE/OUTPATIENT VISIT, EST OFFICE/OUTPATIENT VISIT, EST OFFICE/OUTPATIENT VISIT, EST OFFICE/OUTPATIENT VISIT, EST OFFICE/OUTPATIENT VISIT, EST PREV VISIT, NEW, AGE 40-64 Advance Directives Directive Yes / No Effective Date File Name No Information Encounters Encounter Description Practice Location Reason(s) For Visit Diagnoses Date Provider Providers Copied on Encounter OFFICE/OUTPA TIENT VISIT, [facility], [address], [place], [address], tel:[phone] [facility] HTN (chief complaint)H LP (chief complaint)i nsomnia1 (chief complaint) Mixed hyperlipidemiaEsse ntial (primary) hypertensionPrimar y insomnia 4 Hunter Ireland [address], [address] , [place]. tel:[phone] OFFICE/OUTPA TIENT VISIT, [facility], [address], [place], [place], [address], [place] tel:[phone] [facility] elbow pain1 (chief complaint) Medial epicondylitis, right elbow 4 Hunter Ireland [address], [place], [place], [address] , [place]. tel:[phone] PREV VISIT, EST, AGE 40-64 [facility], [address], [place], [place], [address], [place] tel:[phone] [facility] physical (chief complaint) Encounter for general adult medical exam w abnormal findingsFatty liverMixed hyperlipidemiaGene ralized Anxiety DisorderHyperglyce miaEssential (primary) hypertensionOther specified disorder of bone densityObstructive sleep apnea hypopnea 4 [facility]. [address], [address], [place], [place], [address] , [place]. [phone] OFFICE/OUTPA TIENT VISIT, [facility], [address], [place], [place], [address], [place] tel:[phone] [facility] elbow pain1 (chief complaint)f atty liver1 (chief complaint)h ot flush1 (chief complaint) Fatty liverPain in right elbowFlushing 4 [facility]. [address], [place], [place], [address] , [place]. tel:[phone] OFFICE/OUTPA TIENT VISIT, EST [facility], [address], [place], [place], [address], [place] tel:[phone] [facility] vertigo1 (chief complaint)H LP (chief complaint)a nxiety1 (chief complaint)L FT (chief complaint)H TN (chief complaint) Liver diseaseHyperglycem iaEssential (primary) hypertensionBenign paroxysmal vertigo, bilateralMixed hyperlipidemiaOthe r specified disorder of bone densityGeneralized Anxiety Disorder Jun-2 4 [facility]. [address], [place], [place], [address] , [place]. [phone] OFFICE/OUTPA TIENT VISIT, [facility], [address], [place], [place], [address], [place] tel:[phone] [facility] HTN (chief complaint)v asomotor1 (chief complaint)H LP (chief complaint) Essential (primary) hypertensionFlushi ngGeneralized Anxiety DisorderMixed hyperlipidemia 4 [facility]. [address], [place], [place], [address] , [place]. tel:[phone] OFFICE/OUTPA TIENT VISIT, [facility], [address] [place], [address], [place] tel:[phone] [facility] TIA1 (chief complaint)v asomotor1 (chief complaint)l iver (chief complaint) LeukopeniaMixed hyperlipidemiaTran sient cerebral ischemic attack, unspecifiedEssenti al (primary) hypertensionLiver disease 3 [facility]. [address], [place], [place], [address] , [place]. tel:[phone] PREV VISIT, EST, AGE 40-64 [facility], [address] [place], [address], [place] tel:[phone] [facility] physical (chief complaint) Encounter for general adult medical exam w abnormal findingsPrimary central sleep apneaMixed hyperlipidemiaFati gueHeadacheLeukope niaAbnormal weight loss 3 [facility]. [address], [place], [place], [address] , [place]. tel:[phone] OFFICE/OUTPA TIENT VISIT, [facility], [address] [place], [address], [place] tel:[phone] [facility] knee pain1 (chief complaint)G I (chief complaint)f atigue1 (chief complaint)l eukopenia1 (chief complaint) Pain in unspecified kneeSleep apneaLeukopeniaGER D w/o esophagitis 2 [facility]. [address], [place], [place], [address] , [place]. tel:[phone] OFFICE/OUTPA TIENT VISIT, [facility], [address], [place], [place], [address], tel:[phone] [facility] Medicine HTN (chief complaint)G I (chief complaint)H LP (chief complaint)l eukopenia1 (chief complaint)l ow D (chief complaint)s leep apnea1 (chief complaint) HyperlipidemiaLeuk openiaGERD w/o esophagitisEssenti al (primary) hypertensionVitami n D deficiency, unspecifiedSleep apnea 1 [facility] Ireland [address], [place], [place], [address] , [place]. [phone] PREV VISIT, EST, AGE 40-64 [facility], [address] [place], [address], tel:[phone] [facility] physical (chief complaint) Encounter for general adult medical exam w abnormal findingsEssential (primary) hypertensionHeadac heIrritable bowel syndrome with constipationGERD w/o esophagitisSleep apneaHyperlipidemi aLeukopenia 1 Hunter Ireland [address], [place], [place], [address] , [place]. [phone] OFFICE/OUTPA TIENT VISIT, EST [facility], [address], [address], tel:[phone] [facility] insomnia1 (chief complaint)s leep apnea1 (chief complaint) InsomniaSleep apnea 9 [facility] Ireland [address], [place], [address] , [place]. [phone] Referring Provider: Gabby Rojas [address], [place], [place], [address]. tel:[phone] PREV VISIT, EST, AGE 40-64 [facility], [address], [place], [place], [address], tel:[phone] [facility] Physical (chief complaint) Encounter for general adult medical exam w abnormal findingsAbnormal weight gainInsomniaHyperl ipidemiaLeukopenia Disorder of bilirubin metabolism, unspecifiedViral infection 9 [facility] Ireland [address], [place], [place], [address] , [place]. [phone] Referring Provider: Gabby Rojas [address] [facility] A, [place], [place], [address]. tel:[phone] OFFICE/OUTPA TIENT VISIT, [facility], [address] [place], [address], [place] tel:[phone] [facility] fatigue1 (chief complaint)H TN (chief complaint)c arpal (chief complaint) Essential (primary) hypertensionInsomn iaParesthesia of skinEdema 8 [facility] Ireland [address], [place], [place], [address] , [place]. [phone] Referring Provider: Gabby Rojas [facility], [place], [place], [address]. tel:[phone] OFFICE/OUTPA TIENT VISIT, [facility], [address], [place], [place], [address], [place] tel:[phone] [facility] weight gain1 (chief complaint)r ight hand (chief complaint)i nsomnia1 (chief complaint)H TN (chief complaint) FatigueParesthesia of skinAbnormal weight gainEssential (primary) hypertensionHyperl ipidemia 8 [facility], [place], [place], [address] , [place]. [phone] Referring Provider: Gabby Rojas [facility] A, [place], [place], [address]. tel:[phone] PREV VISIT, EST, AGE 40-64 [facility], [address], [place], [place], [address], [place] tel:[phone] [facility] HLP (chief complaint)g allstone1 (chief complaint)a nkle pain1 (chief complaint)H TN (chief complaint) HyperlipidemiaOthe r cholelithiasis without obstructionTarsal tunnel syndrome, left lower limbEssential (primary) hypertensionEncoun ter for general adult medical exam w abnormal findings Jun- 8 [facility]. [address], [place], [place], [address] , [place]. [phone] Referring Provider: Gabby Rojas [facility] A, [place], [place], [address]. tel:[phone] PREV VISIT, EST, AGE 40-64 [facility], [address], [place], [place], [address], [place] tel:[phone] [facility] PHysical (chief complaint) Encounter for general adult medical exam w abnormal findingsHyperlipid emiaEssential (primary) hypertensionOther cholelithiasis without obstruction 7 Hunter Ireland [address], [place], [place], [address] , [place]. [phone] Referring Provider: Gabby Rojas [facility] A, [place], [place], [address]. tel:[phone] OFFICE/OUTPA TIENT VISIT, EST [facility], [address], [place], [place], [address], [place] tel:[phone] [facility] knee pain1 (chief complaint)w eight gain1 (chief complaint) Body mass index (BMI) 38.0-38.9, adultBaker's cyst of popliteal space of left kneeHyperlipidemia Jul- 0 7 [facility] [address], [place], [place], [address] , [place]. tel:[phone] Referring Provider: Gabby Rojas [address], [place], [place], [address]. tel:[phone] OFFICE/OUTPA TIENT VISIT, EST [facility], [address], [place], [place], [address], [place] tel:[phone] [facility] leg swelling1 (chief complaint)H LP (chief complaint)l ow D (chief complaint)o besity1 (chief complaint) Talbetr's cyst of popliteal space of left kneeVitamin D deficiency, unspecifiedHyperli pidemiaBody mass index (BMI) 38.0-38.9, adult Mar-0 7 [facility]. [address], [place], [place], [address] , [place]. tel:[phone] Referring Provider: Gabby Rojas [address], [place], [place], [address]. tel:[phone] OFFICE/OUTPA TIENT VISIT, [facility], [address], [place], [place], [address], [place] tel:[phone] [facility] abdominal pain1 (chief complaint) Abdominal painIrritable bowel syndrome Miles- 6 [facility]. [address], [place], [place], [address] , [place]. tel:[phone] Referring Provider: Gabby Rojas [address], [place], [place], [address]. tel:[phone] OFFICE/OUTPA TIENT VISIT, [facility], [address], [place], [address], [place] tel:[phone] [facility] chronic conditions (chief complaint)a bd pain (chief complaint) Abdominal painOther cholelithiasis w/o obstruction 6 [facility]. [address], [place], [place], [address] , [place]. tel:[phone] Referring Provider: Gabby Rojas [address], [place], [place], [address]. tel:[phone] PREV VISIT, EST, AGE 40-64 [facility], [address], [place], [place], [address], [place] tel:[phone] [facility] Medicine physical (chief complaint) Encounter for general adult medical exam w abnormal findingsMeralgia paresthetica, left lower limbAbdominal painAnemia 6 [facility]. [address], [place], [place], [address] , [place]. tel:[phone] Referring Provider: Gabby Rojas [address], [place], [place], [address]. tel:[phone] OFFICE/OUTPA TIENT VISIT, EST [facility], [address], [place], [place], [address], [place] tel:[phone] [facility] back pain1 (chief complaint)p re employment physical (chief complaint) Meralgia paresthetica, left lower limb 5 [facility]. [address], [place], [place], [address] , [place]. tel:[phone] Referring Provider: Gabby Rojas [facility] A, [place], [place], [address]. tel:[phone] OFFICE/OUTPA TIENT VISIT, EST [facility], [address], [place], [place], [address], [place] tel:[phone] [facility] HLP (chief complaint)v itamin D (chief complaint)l eft leg numbness (chief complaint) Meralgia parestheticaOther and unspecified hyperlipidemiaUnsp ecified vitamin D deficiencyDietary surveillance and counseling 5 [facility]. [address], [place], [place], [address] , [place]. tel:[phone] Referring Provider: Gabby Rojas [address], [place], [place], [address]. tel:[phone] PREV VISIT, EST, AGE 40-64 [facility], [address], [place], [place], [address], [place] tel:[phone] [facility] HLP (chief complaint)v itamin D (chief complaint)l eft leg pain (chief complaint) Dietary surveillance and counselingRoutine Medical ExamRoutine Medical Exam 5 [facility] [address], [place], [place], [address] , [place]. [phone] Referring Provider: Gabby Rojas [address], [place], [place], [address]. tel:[phone] OFFICE/OUTPA TIENT VISIT, [facility], [address], [place], [address], [place] tel:[phone] [facility] leg pain (chief complaint) Dietary surveillance and counselingPain in joint involving pelvic region and thighPain in limbAnemia Jun- 5 [facility]. [address], [place], [place], [address] , [place]. tel:[phone] Referring Provider: Gabby Rojas [address], [place], [place], [address]. tel:[phone] OFFICE/OUTPA TIENT VISIT, [facility], [address], [place], [address], [place] tel:[phone] [facility] left leg pain (chief complaint) Pain in limbDietary surveillance and counselingDisturba nce of skin sensation 5 [facility] [address], [place], [place], [address] , [place]. tel:[phone] Referring Provider: Gabby Rojas [address], [place], [place], [address]. tel:[phone] OFFICE/OUTPA TIENT VISIT, [facility], [address], [place], [address], [place] tel:[phone] [facility] knee pain (chief complaint)A nemia (chief complaint)G ERD (chief complaint) Dietary surveillance and counselingPain in joint involving lower legAnemiaAbnormal weight gain 5 [facility] [address], [place], [place], [address] , [place]. tel:[phone] Referring Provider: Gabby Rojas [address], [place], [place], [address]. tel:[phone] OFFICE/OUTPA TIENT VISIT, [facility], [address], [place], [place], [address], [place] tel:[phone] [facility] Anemia (chief complaint)V itamin D (chief complaint)G ERD (chief complaint) GERDOther specified anemiasUnspecified vitamin d deficiency Apr-2 4 [facility]. [address], [address], [address] , [place]. tel:[phone] Referring Provider: Gabby Rojas [facility] A, [place], [place], [address]. tel:[phone] OFFICE/OUTPA TIENT VISIT, [facility], [address], [address], [place] tel:[phone] [facility] fatigue (chief complaint) Dietary surveillance and counselingAnemiaMe tabolic SyndromeUnspecifie d vitamin d deficiencyDizzines s Apr-2 4 [facility]. [address], [address], [address] , [place]. [phone] Referring Provider: Gabby Rojas [facility] [place], [address]. tel:[phone] PREV VISIT, NEW, AGE 40-64 [facility], [facility] [address], [address], [place] tel:[phone] [facility] PHysical (chief complaint) Dietary surveillance and counselingRoutine Medical ExamRoutine Medical Exam Jul-0 4 [facility]. [address], [facility], [address] , [place]. tel:[phone] Family History Family Member Type Diagnosis Age At Onset Mother Problem (finding) Alzheimer's Disease Brother Problem (finding) Alive and well Father Problem (finding) Diabetes mellitus Father Problem (finding) Cancer, prostate Payers Payer name Insurance type Covered constitution party ID Authoriza tion(s) No Information Social History Type Description Quantity Date Captured Comments Alcohol Use Details Caffeine Use Details Unknown Tobacco Use Status Never smoked tobacco 2023 Smoking Status Never smoker Sex Female Vital Signs Date / Time: Height Weight BMI Pulse Rate Blood Pressure Temperature Respiratory Rate Body Surface Area Head Circumference BMI percentile Pulse Ox Inhaled Ox 12:26 PM 67.00 in 255.20 lbs 39.9 7 kg/m eter (2) 78 /min 112/72 mm[Hg] 98.0 F 16 /min Chief Complaint And Reason For Visit From encounter dated '02/21/2024 12:21'. HTN (chief complaint). Description: Pt has HTN pt denies any chest pain or headache. her bp is ok HLP (chief complaint). Description: Pt has HLP has not been taking lipitor for 3 months Pt just weaned herself off lipitor . Pt denies any myalgia insomnia1 (chief complaint). Description: Pt has been having insomnia for few weeks. She is worrying about her son's health. pt states that she can fall asleep but she can not keep asleep. Ptdoes have mild sleep apnea but she does not want to use cpap. pt feels fatigue in the morning and throughout the day. Pt has been drinking a lot of coffee and energy drink Plan Of Treatment Date Type Action Status Goal Special diet education compl eted Goal Special diet education compl eted Goal Special diet education compl eted Goal Special diet education compl eted Goal Special diet education compl eted Referral Referred To: Kinsey Reid [facility] [address] [facility] [facility]
[address] [place], [place], [address] Ordered: Referrals: Kinsey Reid MD. Evaluate and treat ordered Referral Ordered: DXA BONE DENSITY, AXIAL ordered Referral Ordered: US EXAM, ABDOM, COMPLETE ordered Referral Referred To: Juan KLINE, Emir Condon [address]
[place] [address] [place], [place], [address] Ordered: Referrals: Emir Martinez MD. Evaluate and treat ordered Referral Ordered: Hematology (related to Leukopenia) ordered Referral Ordered: Referrals: Hematology. Evaluate and treat ordered Referral Ordered: UPPER GI AIR CONTRASTW/ SMALL BOWEL SERIES ordered Referral Ordered: SLEEP STUDY, ATTENDED ordered Referral Ordered: Podiatry (related to Tarsal tunnel syndrome, left lower limb) ordered Referral Ordered: Referrals: Podiatry. Evaluate and treat ordered Referral Ordered: Brett Fitzgerald (related to Talbert's cyst of popliteal space of left knee) ordered Referral Referred To: Brett Fitzgerald [address] [place], [phone] Ordered: Referrals: Brett Fitzgerald. Evaluate and treat ordered Referral Ordered: Sloan Lakhani (related to Abdominal pain) ordered Referral Referred To: Sloan Lakhani [address] [place], [phone] Ordered: Referrals: Sloan Lakhani. Evaluate and treat ordered Referral Ordered: NUC MED HIDA (HEPATOBILIARY) SCAN ordered Referral Ordered: [facility]ED [facility] (related to Encounter for general adult medical exam w abnormal findings) ordered Referral Referred To: JED JC [address] [place], [place], [phone] Ordered: Referrals: JED JC. Evaluate and treat ordered Referral Ordered: MAMMOGRAM, SCREENING ordered Referral Ordered: Physical Therapy (related to Meralgia paraesthetica) ordered Referral Referred To: Physical Therapy Ordered: Referral: Physical Therapy. ordered Referral Ordered: MRI LUMBAR SPINE W/O DYE ordered Referral Ordered: HIP XRAY AP/LAT Left ordered Referral Ordered: MRI LOWER EXTREMITY W/O DYE ordered Referral Ordered: Speech Therapy (related to Pain in joint involving lower leg) ordered Referral Ordered: Ortho Surg (related to Pain in joint involving lower leg) ordered Referral Ordered: Referral: Ortho Surg. Evaluate and treat. ordered Referral Ordered: KNEE XRAY TWO-VIEW Bilateral ordered Referral Referred To: Speech Therapy Ordered: Referral: Speech Therapy. ordered Referral Ordered: COLONOSCOPY AND BIOPSY ordered History Of Present Illness Encounter Date Complaint History Of Prese nt Illness HTN Pt has HTN pt de nies any chest pain or headache. her bp is ok HLP Pt has HLP has n ot been taking lipitor for 3 months Pt just weaned herself off lipitor . Pt denies any myalgia insomnia1 Pt has been havi ng insomnia for few weeks. She is worrying about her son's health. pt states that she can fall asleep but she can not keep asleep. Pt does have mild sleep apnea but she does not want to use cpap. pt feels fatigue in the morning and throughout the day. Pt has been drinking a lot of coffee and energy drink elbow pain1 Pt c/o persisten t right elbow pain around medial epicondyle for several months Pt initially fell on right elbow area several months ago with negative x ray. 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 Pt also started to work in [employer] and lifting more heavy packages for one week and she notices even worsening pain. Pt denies any swelling ,redness or warmth Pt denies any radiculopathy to right forearm Pt denies any weakness pt denies any right forearm paresthesia. Pt currently notices right elbow sharp pain constantly, especially when she rest her elbow on table or when she lifts something pt denies any impact injury physical Pt needs annual physical. Pt has HTN and she is on norvasc and her bp is stable. Pt has HLP Pt takes lipitor Pt denies any myalgia. Pt no longer feels anxious or depressed and she weaned herself off paxil one month ago and her mood is ok Pt denies any suicidal or homicidal thought Pt denies any crying spells. Pt is during summer break now and she thinks that her mood issue was due to stress from work. Pt no longer feels anxious or depressed since off school. Pt overall feels fine. elbow pain1 Pt tripped and f all on stairs and she fell on both elbow and she hit her head 13 days ago. Pt denies any headache or LOC. Pt c/o right elbow pain with some pain radiating to right forearm. Pt denies any forearm injury Pt notices some swelling right elbow and also part of right forearm. Pt denies any paresthesia. Pt went to urgent care 4 days ago and she had negative x ray of right elbow. Pt was given some oral steroid which made her feel more pain and she stopped the steroid. fatty liver1 Pt has fatty coby er on ultrasound Pt is obese Pt denies any abd pain or jaundice. hot flush1 Pt has hot flash and he was on veozah and she tried to nut picker veozah and was $45 and she can not afford it. vertigo1 Pt c/o intermitt ent vertigo feeling for the past month, Pt states that it usually occurs randomly lasting several seconds. Pt denies any chest pain or palpitation or presyncope or headache HLP Pt has HLP Pt is on lipitor Her lipid profile is ok Pt denies any myalgia anxiety1 Pt has anxiety a nd depression with mood swings due to menopausal change Pt started paxil and veozah last month and she is doing much better .her mood improved and she has less mood swings Pt also has less hot flushing. Pt denies any suicidal or homicidal thought Pt denies any crying spells LFT Pt has mildly hi gh LFT. Pt denies any abd pain or jaundice Pt rarely drinks alcohol Pt has mildly high glucose Pt denies any polyuria, polydipsia HTN Pt has HTN Pt shweta arellano and her bp is stable HLP Pt has HLP Pt ta kes lipitor Pt denies any myalgia HTN Pt has HTN pt ta analilia norvasc and she states that her bp was 170/90 at work today pt notices some headache this morning. pt denies any chest pain or sob. Pt denies any vision change vasomotor1 Pt has severe va somotor symptoms including severe hot flash, feeling emotional with crying spells, unable to focus and concentrate, increasing appetite Pt states that she has to change cloth every morning due to hot flush TIA1 Pt recently had TIA episode. Pt was at work and she started to feel some visual change, poor speech and not making sense when she speaks. pt denies any headache. Pt was admitted to hospital for TIA work up Pt had negative cardiac echo, CTA head and neck and head CT and also MRi of brain. Pt is on norvasc, ASA and also lipitor now. Pt denies any recurrent episode since two weeks ago. Pt had above episode two weeks ago. Pt also suffered hypertensive emergency as well. Pt currently feels fine vasomotor1 Pt has been off estrogen and she could not tolerate effexor. Pt doing ok currently liver Pt has mildly el evated LFT on recent hospital lab. Pt denies any abd pain or jaundice physical Pt needs annual physical Pt c/o mild headache and blurred vision intermittently and foggy brained for one month Pt started estradiol since one month ago by her [employer]CLING INSTRU[employer] for some vasomotor symptoms including hot flash, sweating, etc Pt has chronic fatigue . Pt does have sleep apnea but she does not want to use cpap Pt has been intentionally losing weight with diet and exercise but she is still rather obese .Pt denies any head injury or waking up at night with headache. knee pain1 Pt slipped and f ell forward and both knee hit the ground last week. Pt notices bilateral knee swelling and pain, which is worse on left side. her right knee pain and swelling seem improving per patient. Pt notices persistent left knee pain, especially when she tries to going up stairs or bending. Pt denies any pain when resting or regular walking. Pt denies any knee redness or warmth Pt denies any skin abrasion GI Pt states that h er GI symptoms resolved. Pt never tried linzess. Pt did not do gastric empty study fatigue1 Pt has chronic f atigue and mild sleep apnea Pt denies any dizziness or chest pain or sob Pt is noncompliant with cpap. Pt does not want to use cpap leukopenia1 Pt has leukopeni a Pt denies any recurrent fever or infection Pt was evaluated by hematology recently and she was told everything benign. HTN Pt could not juliette erate irbesartan which made her stomach upset with swelling and she stopped taking it after two weeks. her bp is ok today GI Pt c/o Gi upset, worse after food. Pt feels that food just sit in her stomach without moving down Pt has GERD. Pt feels nauseated throughout the day. Pt denies any abd pain Pt also has chronic constipation for at least 6 months Pt states that usually she has to drink coffee in the morning in order to have BM but lately it has not worked. Pt usually has BM every 3-4 days and it is hard stool. Pt denies any diarrhea or blood in stool. Pt overall feels bloated and not well. Pt states that protonix did help her GERD and overall symptoms pt denies any acute abdomen. Pt also states that she has been eating better and her BM is ok now. Pt denies any blood in stool. Pt has not done gastric empty study Pt is off protonix. Pt never tried linzess and trulance. HLP Pt has HLP. Pt d oes not eat very healthy leukopenia1 Pt has borderlin e low wbc .Neutrophile ok. Pt denies any fever or infection low D Pt has low D. sleep apnea1 Pt has sleep batch mixing truck driver ea. pt feels fatigue and she does snore physical Pt needs annual physical. Pt has not seen Md for over one year. Pt has sleep apnea but she never did CPAP titration study so she is not on CPAP Pt gained more weight pt does snore and feels fatigue all day. Pt c/o headache upon awakening in the morning Pt denies any head injury or waking up at night with headache. Pt also c/o Gi upset, worse after food. Pt feels that food just sit in her stomach without moving down Pt has GERD. Pt feels nauseated throughout the day. Pt denies any abd pain Pt also has chronic constipation for at least 6 months Pt states that usually she has to drink coffee in the morning in order to have BM but lately it has not worked. Pt usually has BM every 3-4 days and it is hard stool. Pt denies any diarrhea or blood in stool. Pt overall feels bloated and not well. Pt denies any chest pain. Pt usually wakes up feeling poorly rested with cloudy brained and overall not well insomnia1 Pt has insomnia. Pt has not tried amitriptyline. Pt states that her uncle lives with her now and she is afraid of not hearing her uncle if he needs her help at night. Pt does have insomnia sleep apnea1 Pt has sleep batch mixing truck driver ea Pt has chronic fatigue. pt needs CPAP. Physical Pt needs annual physical. pt has not been taking HCTZ and also amitriptyline and she has not had any more swelling unless she eats a lot of salt. Pt still has insomnia. Pt still snores and feels extremely fatigue in the morning and throughout the day. Pt c/o lower GI cramp with watery diarrhea for 3 days .Pt has mild nausea but no vomiting .Pt denies any fever, chill, blood in stool. Pt denies any recent travel or sick contact. Pt has been gaining weight. Pt has HLP Pt is not eating very healthy. pt has mild leukopenia Pt denies any fever, chill Pt has borderline high bilirubin. Pt denies any jaundice. fatigue1 Pt has insomnia and fatigue. Pt states that she is doing well with amitriptyline. Pt denies any constipation, dry mouth, fatigue. Pt denies any snoring Pt denies waking up at night due to breathing issue. HTN Pt has mild htn and swelling due to obesity and dependent edema. Pt states that HCTZ really helped. Pt states that swelling resolved. carpal Pt notices right hand numbness and tingling and weakness. 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 Pt states that her symptoms is much improved now with wrist splint and also prednisone. weight gain1 Pt gained 20 emigdio nds during last two years. Pt is not very active. Pt just started to watch her diet. Pt states she does do snack all day. right hand Pt c/o right lees d pain and numbness x 3 weeks. 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 Pt c/o numbness right middle and ring finger. Pt c/o she feels pain around the palm of the hand and she feels pain and numbness spreading to right forearm. Pt sometimes wakes up at night with the pain and numbness Pt denies any right axillary pain or nodule. Pt denies any neck pain or radiculopathy insomnia1 Pt feels insomni a and she takes melanotonin nightly. Pt snores sometimes. Pt feels fatigue in the morning and rest of the day. Pt denies any sob HTN Pt has mild HTn and she notices swelling around hand and leg whenever she eats salty food. Pt denies any headache. HLP pt has mild HLP. Pt has been trying to low fat and low carb diet gallstone1 Pt has gallstone . Pt has RUQ pain post food. Pt denies any nausea, vomiting. Pt will have surgery in aM for gallbladder removal HTN pt has mid HTn. Pt denies any chest pain or headache. ankle pain1 Pt c/o posterior left ankle pain for 1.5 months. Pt denies any calf pain. Pt denies any injury. Pt denies any numbness or tingling rest of foot. Pt denies any erythema. pt is on her foot all day. pt notices mild left posterior ankle swelling sometimes. Pt denies any recent travel or bedrest. Pt denies any chest pain or sob. Pt c/o burning feeling left ankle area. Pt denies any calf pain .Pt denies any injury PHysical Pt needs annual physical. Pt has left knee pain and she is seeing ortho and doing PT and she is doing better Pt has intermittent mild right upper quadrant pain and also gERD. Pt had benign EGD and colonoscopy and she did take some PPI which helped. Pt no longer taking any PPIs Pt denies any acute abd pain. Pt states that she does NOT want her gallbladder removed. Pt has mild HTn today. Pt denies any chest pain or headahe. Pt denies any other complaints knee pain1 Pt c/o left knee pain. Pt has history of left knee pain due to patella tilt and her previous ortho told her she needs knee replacement. Pt wants 2nd opinion Pt has talbert cyst. Pt states that she feels that her left knee pain recently is different from her chornic left knee pain Pt was told by ortho that she needs previous records before she can be scheduled. Pt denies any calf pain or knee injury. Pt states that her left knee swells and she has worsening pain with weight bearing Pt denies any calf pain. Pt had above pain for 4-6 weeks. Pt denies any redness or warmth weight gain1 Pt has been gain ing weight since last year. Pt has mild HLP Pt is not very active leg swelling1 Pt c/o suddent o nset of left lower leg swelling since last sunday. Pt denies any recent travel or bedrest. Pt denies any calf pain. Pt denies any numbness. Pt states that she feels the swelling around the calf comes and goes. Pt has not been working since last week per ER MD. Pt denies any chest pain or SOB. Pt states that the left calf swelling improved since last week since off work. Pt has history of left knee pain due to arthritis. Pt used to see ortho and was told she needs knee replacment but sshe does not want to HLP Pt has HLP. Pt h as been diet and exercising low D Pt has low D on lab obesity1 Pt has been gain ing weight. pt denies any trouble with breathing or snoring abdominal pain1 Pt has persisten t midepigastic and abdominal cramp and burning feeling. Pt had negative gallbladder study. Pt states that pain is worse with food. Pt denies any nasuea, vomiting. Pt has some nonspecific diarrhea and constipation. Ptt had benign EGD and colonoscopy two years ago. Pt denies any weight loss. Pt feels bloated all the time. chronic conditions abd pain Pt c/o chornic m idepigastric abdominal pain for several months. Pt denies any nausea, vomiting, diarrhea Pt denies any weight loss. Pt has been taking omeprazole but not heping at all. Pt had negative EGD and colonoscopy recently Pt denies any GERD symptoms. Pt states tht he pain is worse after food. physical Pt needs annual physical. Pt c/o midepigastric pain and pressure during last 4 weeks. Pt denies any nausea, vomiting. Pt states that she notices worsening symptoms when she eat spicy food. Pt states that she does not have any worsening pain after food in general. Pt denies any diarrhea or blood in stool. Pt also has chronic low back apin with left lateral leg pain and numnbess. Pt is noncompliant with MRI of Lspine Pt faied PT. Pt denies any other complaints. back pain1 Pt has chronic m ild low back pain and left sciatitica and left latearl upper thigh numnbess and pain. Pt denies any wrosening symptoms. Pt has not done PT. Pt denies any other complaints pre employment physical Pt needs physical done for Chromatik .Pt denies any coughing for night sweat or any complaints. Pt needs TB test again since the other one is older than 90 days HLP Pt has HLP. Pt h as been trying low fat and low carb diet vitamin D Pt has low vitam in D. left leg numbness Pt has chronic left upper leg numbness and pain. Pt has some low back pain. Pt denies any loss of bowel or bladder control. Pt has some left sciatica Instructions Date Instruction Additional Infor mation Special diet education Related t o Body mass index (BMI) 40.0-44.9, adult Increase physical activity Relat ed to Insomnia Weight management Related to Ins omnia Increase physical activity Relat ed to Encounter for general adult medical exam w abnormal findings Weight management Related to Enc ounter for general adult medical exam w abnormal findings Diet and exercise Related to Enc ounter for general adult medical exam w abnormal findings Special diet education Related t o Body mass index (BMI) 40.0-44.9, adult Follow a low sodium diet. Relate d to Essential (primary) hypertension Increase activity. Related to Es sential (primary) hypertension Special diet education Related t o Body mass index (BMI) 40.0-44.9, adult Special diet education Related t o Body mass index (BMI) 40.0-44.9, adult Increase physical activity Relat ed to Fatigue Weight management Related to Fat igue Follow a low sodium diet. Relate d to Hyperlipidemia Increase physical activity Relat ed to Encounter for general adult medical exam w abnormal findings Weight management Related to Enc ounter for general adult medical exam w abnormal findings Increase activity. Related to Hy perlipidemia Special diet education Related t o Body mass index (BMI) 40.0-44.9, adult Increase activity. Related to Hy perlipidemia Follow a low sodium diet. Relate d to Hyperlipidemia Prescribed Activity and Exercise Education Related to Dietary Surveillance and Counseling Prescribed Diet Educ ation/Lifestyle Education Regarding Diet Related to Dietary Surveillance and Counseling Increase physical activity Relat ed to Encounter for general adult medical exam w abnormal findings Weight management Related to Enc ounter for general adult medical exam w abnormal findings Prescribed Activity and Exercise Education Related to Dietary Surveillance and Counseling Prescribed Diet Educ ation/Lifestyle Education Regarding Diet Related to Dietary Surveillance and Counseling Prescribed Diet Educ ation/Lifestyle Education Regarding Diet Related to Dietary Surveillance and Counseling Prescribed Activity and Exercise Education Related to Dietary Surveillance and Counseling Prescribed Diet Educ ation/Lifestyle Education Regarding Diet Related to Dietary Surveillance and Counseling Prescribed Activity and Exercise Education Related to Dietary Surveillance and Counseling Prescribed Activity and Exercise Education Related to Dietary Surveillance and Counseling Prescribed Diet Educ ation/Lifestyle Education Regarding Diet Related to Dietary Surveillance and Counseling Prescribed Activity and Exercise Education Related to Dietary Surveillance and Counseling Prescribed Diet Educ ation/Lifestyle Education Regarding Diet Related to Dietary Surveillance and Counseling Prescribed Activity and Exercise Education Related to Dietary Surveillance and Counseling Prescribed Diet Educ ation/Lifestyle Education Regarding Diet Related to Dietary Surveillance and Counseling Physical activity counseling Rel ated to Dietary surveillance counseling Decrease caloric intake Related to Dietary surveillance counseling Physical activity counseling Rel ated to Dietary surveillance counseling Decrease caloric intake Related to Dietary surveillance counseling Decrease caloric intake Related to Dietary surveillance counseling Physical activity counseling Rel ated to Dietary surveillance counseling Physical activity counseling Rel ated to Dietary surveillance counseling Decrease caloric intake Related to Dietary surveillance counseling Dietary counseling Related to Di etary surveillance counseling Decrease caloric intake Related to Dietary surveillance counseling Dietary counseling Related to Di etary surveillance counseling Decrease caloric intake Related to Dietary surveillance counseling Assessments Type Assessment Date assessment Mixed hyperlipidemia assessment Essential (primary) hypertension assessment Primary insomnia Mental Status Date Cognitive Assessment Orientation - [place] ed to time, place, person, situation.
--- OUTSIDE RECORDS SUMMARY | 2024-10-27 10:05 | XMS_ITS | Encounter Summary ---
Author Organization [facility] Address [address] [place] [address] Phone Care Team Providers Care Hospital Television Rental Clerk Name Role Phone Jayy Harrison Primary Care Provider [phone] Luke Velasco MD Unavailable [phone] Encounter Details Date Type Department Care Team (Late st Contact Info) Description 03/31/2021 Telephone [facility] [address] [address] Luke Velasco MD [address] [facility] [place] [address] [address] Social History Tobacco Use Types Packs/Day Years Used Date Smoking Tobacco: Never Smokeless Tobacco: Never Alcohol Use Standard Drinks/Week Comments Yes 1 (1 standard drink = 0.6 oz pur e alcohol) 1 glass per month PHQ-2 Answer Date Recorded Total Score - Questions 1-9 0 12/15 Sexually Active Control Partners Comments Not Currently Comments Unknown Sex and Gender Information Value Date Recorded Sex Assigned at Not on file Legal Sex Female 10:15 AM CDT Gender Identity Not on file Sexual Orientation Not on file documented as of this encounter Miscellaneous Notes * Telephone Encounter - [place] - 03/31/2021 12:28 PM CST PT HAD APPT TODAY, NO SHOW, CALLED PT LEFT V/M, LETTER SENT MOWER OPERATOR documented in this encounter Plan of Treatment Not on file documented as of this encounter Visit Diagnoses Not on filedocumented in this encounter Additional Health Concerns Assessment Noted Time PHQ-9 Depression Total Score: 0 12/31/19 10:36 AM CDT documented as of this encounter Care Teams Hospital Television Rental Clerk Relationship Specialty Start Date End Date Jayy Harrison [address] [place] [address] PCP - General Family Medicine 11/09/20 Luke Velasco MD [address] [place] [address] Consulting Physician Oncology 11/09/20 documented as of this encounter
--- OUTSIDE RECORDS SUMMARY | 2024-10-27 10:05 | XMS_ITS | Clinical Summary ---
Author Organization [facility] Address [address] [place] [address] Care Team Providers Care System Specialist Name Role Phone Jayy Harrison MD Primary Care Provider [phone] Source Comments [facility],non-owned Affiliates and Associated Physician Practices is amultiple site organization consisting of ambulatory clinics and hospital sitesin [place], [place], [place] and [place]. This disclosure is being madepursuant to the Care Everywhere program and may not contain all information available regarding this patient. Last updated 18.Directr Allergies Active Allergy Reactions Criticality Noted Date Comments Aspirin Bleeding 08/04/2016 Medications * Be aware that medications may not be up to date on this document. Alwaysverify current medications with the patient. dexlansoprazole (DEXILANT) 60 MG capsule 2 05/05/2016 Active ursodiol (ACTIGALL) 250 MG tablet 0 05/01/2016 Active amitriptyline (ELAVIL) 25 MG tablet 10/04/2015 Active ibuprofen (MOTRIN) 800 MG tablet Take 800 mg by mouth q6h PRN (Pain). 08/04/2016 Active omeprazole (PRILOSEC) 40 MG capsule 10/04/2015 Active Active Problems Problem Noted Date Diagnosed Date Pain in knee 08/04/2016 Pain in extremity 08/04/2016 Encounter for general adult medical examination without abnormal findings 08/04/2016 Disturbance of skin sensation 08/04/2016 Pain in hip 08/04/2016 Meralgia paresthetica 08/04/2016 Pain in left knee 08/04/2016 Other chronic pain 08/04/2016 Meralgia paresthetica of left side 08/04/2016 Vitamin D deficiency 08/04/2016 Metabolic syndrome 08/04/2016 Hyperlipidemia 08/04/2016 Other specified anemias 08/04/2016 Other cholelithiasis without obstruction 017 Gastro-esophageal reflux disease without esophag itis 08/04/2016 Essential (primary) hypertension 08/04/2016 Immunizations Immunization Administration Dates Next Due TD (ADULT), 5 LF TETANUS TOXOID, ADSORBED, PF Family History Medical History Relation Name Comments Cancer Father Hypertension Father Cancer Mother Hypertension Sister Relation Name Status Comments Father Mother Sister Social History Tobacco Use Types Packs/Day Years Used Date Smoking Tobacco: Never Alcohol Use Standard Drinks/Week Comments No 0 (1 standard drink = 0.6 oz pur e alcohol) Comments Unknown Sex and Gender Information Value Date Recorded Sex Assigned at Not on file 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 Gender Identity Not on file Sexual Orientation Not on file Last Filed Vital Signs Vital Sign Reading Time Taken Comments Blood Pressure - - Pulse - - Temperature - - Respiratory Rate - - Oxygen Saturation - - Inhaled Oxygen Concentration - - Weight 111.1 kg (245 lb) 09/29/2016 8:31 AM CDT Height 170.2 cm (5' 7) 09/29/2016 8:31 AM CDT Body Mass Index 38.37 09/29/2016 8:31 AM CDT Plan of Treatment Health Maintenance Due Date Last Done Comments COLOGUARD (AGES 45-75) - COL ON CA SCREENING 1970 COLON MONITORING 1970 COLONOSCOPY - COLON CA SCREENING 1970 CT COLONOGRAPHY - COLON CA SCREENING 1970 Colorectal Cancer Screening 1970 FIT - COLON CA SCREENING 1970 FLEX SIG - COLON CA SCREENING 1970 LIPID TESTING 1970 MAMMOGRAM 1970 HIV SCREENING 1985 HEPATITIS C SCREENING 03/01/1988 HEPATITIS B VACCINE (1 of 3 - 19+ 3-dose series) 1989 PNEUMOCOCCAL VACCINE 50+ (1 of 1 - PCV) 2020 ZOSTER VACCINE (1 of 2) 2020 COVID-19 VACCINE ( - 2023-2 5 season) 2023 DEPRESSION SCREENING 04/16/2024 INFLUENZA VACCINE (#1) 2024 DTAP/TDAP/TD VACCINES (2 - T d or Tdap) 11/18/2029 11/19/2019 HIB VACCINE Aged Out No longer eligi ble based on patient's age to complete this topic HPV VACCINE Aged Out No longer eligi ble based on patient's age to complete this topic MENINGOCOCCAL (Group B) VACC INE SHARED DECISION-MAKING Aged Out No longer eligibl e based on patient's age to complete this topic MENINGOCOCCAL GROUPS A/C/Y/W VACCINE Aged Out No longer eligible b ased on patient's age to complete this topic Insurance [facility] Care Teams System Specialist Relationship Specialty Start Date End Date Jayy Harrison MD [address] [place] [address] PCP - General 08/07/16
--- OUTSIDE RECORDS SUMMARY | 2024-10-27 10:05 | XMS_ITS | Clinical Summary ---
Author Organization [facility] Address [address], [facility] [address] [place] [address] Phone Care Team Providers Care Banquet Pilot Name Role Phone Jayy Harrison Primary Care Provider [phone] Luke Velasco MD Unavailable [phone] Allergies Active Allergy Reactions Criticality Noted Date Comments Aspirin Other (see Comments) 08/04/2016 Nose bleeds Medications amitriptyline (ELAVIL) 25 MG Tablet 10/04/2015 Active Active Problems Problem Noted Date Diagnosed Date Neutropenia 12/30/2020 Family History Medical History Relation Name Comments Cancer Father Alzheimer's Disease Mother Relation Name Status Comments Brother Alive Father Alive Mother Sister Alive Social History Tobacco Use Types Packs/Day Years [...] Sign Reading Time Taken Comments Blood Pressure 134/98 12/30/2020 10:24 AM CDT Pulse 76 12/30/2020 10:24 AM CDT Temperature - - Respiratory Rate - - Oxygen Saturation 97% 12/30/2020 10: 24 AM CDT Inhaled Oxygen Concentration - - Weight 119.7 kg (263 lb 14.4 oz) 2020 10:24 AM CDT Height 167.6 cm (5' 6) 12/30/2020 10:2 4 AM CDT Body Mass Index 42.59 12/30/2020 10:24 AM CDT Plan of Treatment Health Maintenance Due Date Last Done Comments Hepatitis C Virus (HCV) Screening 1970 TdaP Immunization 1970 Hepatitis B Immunization (1 of 3 - 19+ 3-dose series) 1989 Cologuard 2015 Colonoscopy 2015 Colorectal Cancer Screening 2015 Immunochemical Fecal Occult Blood 2015 Pneumococcal Immunization (5 0+ years) (1 of 1 - PCV) 2020 Zoster Immunization (1 of 2) 2020 SARS-COV-2 Immunization (3 - season) 2023 12/03/2020, 11/11/2020 Influenza Immunization (#1) 2024 Respiratory Syncytial Virus (RSV) Immunization (Adult) (1 - 1-dose 75+ series) 2045 DTaP/Tdap/Td Immunization Discontinued 11/19/2019 Human Papillomavirus (HPV) Immunization Aged Out No longer eligible based on patient's age to complete this topic Meningococcal Immunization (ACWY) Aged Out No longer eligible based on patient's age to complete this topic Rotavirus Immunization Aged Out No lo nger eligible based on patient's age to complete [place] [address] [facility] Care Teams Banquet Pilot Relationship Specialty Start Date End Date Jayy Harrison [address] [place] [address] PCP - General Family Medicine 11/09/20 Luke Velasco MD [address] [place] [address] Consulting Physician Oncology 11/09/20
--- OUTSIDE RECORDS SUMMARY | 2024-10-27 10:05 | XMS_ITS | Clinical Summary ---
Author Organization [facility] Address [address] [place] [address] Care Team Providers Care Laborer Cheesemaking Name Role Phone Unavailable Primary Care Provider Unavailabl e Allergies Active Allergy Reactions Criticality Noted Date Comments Aspirin Other (see comment) 07/09/2017 Nose bleeds Medications hydrocodone-lars taminophen (NORCO) 5-325 MG tablet Take 1-2 tablets by mouth every 6 (six) hours as needed for Pain. 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 Gender Identity Not on file Sexual Orientation Not on file Last Filed Vital Signs Vital Sign Reading Time Taken Comments Blood Pressure 135/87 07/10/2017 12:38 PM CDT Pulse 71 07/10/2017 12:38 PM CDT Temperature 36.7 C (98.1 F) 07/10/2017 12:38 PM CDT Respiratory Rate 16 07/10/2017 12:3 8 PM CDT Oxygen Saturation 96% 07/10/2017 12: 38 PM CDT Inhaled Oxygen Concentration - - Weight 115.8 kg (255 lb 4.7 oz) 07/10/2017 7:56 AM CDT Height 170.2 cm (5' 7) 07/10/2017 7:56 AM CDT Body Mass Index 39.98 07/10/2017 7:56 AM CDT Plan of Treatment Health Maintenance Due Date Last Done Comments Colorectal Cancer Screening Colonoscopy (10 Years) 1970 Annual Physical 1973 Hepatitis C 1988 DTaP, Tdap and Td Vaccines ( 1 - Tdap) 1989 Hepatitis B Vaccines (1 of 3 - 19+ 3-dose series) 1989 Mammogram Screening 2010 Pneumococcal Vaccine: 50+ Ye ars (1 of 1 - PCV) 2020 Zoster Vaccines (1 of 2) 2020 COVID-19 Vaccine (1 - 2023-2 5 season) 2023 Meningococcal B Vaccine Aged Out No l onger eligible based on patient's age to complete this topic Meningococcal Vaccine Aged Out No tiarra galen eligible based on patient's age to complete this topic RSV Immunizations Under 20 Months Aged Out No longer eligible based on patient's age to complete this topic Insurance [facility]
--- OUTSIDE RECORDS SUMMARY | 2024-10-27 10:05 | XMS_ITS | Referral Summary ---
Author Organization [facility] [place] Address [address] [place] [address] Care Team Providers Care Technical Publications Manager Name Role Phone Jayy Harrison MD Primary Care Provider [phone] Allergies Active Allergy Reactions Criticality Noted Date Comments Aspirin Other (See comments) Low 07/21/2013 Nose bleeds Medications No known medications Active Problems No known active problems Social History Tobacco Use Types Packs/Day Years Used Date Smoking Tobacco: Never Personal Safety Answer Date Recorded Getting School Help Needed Not on file 04/18 Comments Unknown Sex and Gender Information Value Date Recorded Sex Assigned at Not on file Legal Sex Female 10:20 AM CDT Gender Identity Not on file Sexual Orientation Not on file Plan of Treatment Not on file Insurance [facility] [employer] [facility] [employer] GENERIC Care Teams Technical Publications Manager Relationship Specialty Start Date End Date Jayy aHrrison MD [address] [place] [address] PCP - General Family Medicine 07/14/21
== END 2024-10-27 09:59 | disposition home or self-care (01) ==
LOC: ANHIMG 10:01
PROVIDERS: PCP Emergency Medicine; Visit Provider Obstetrics & Gynecology
DX: Z12.31 Encounter for screening mammogram for malignant neoplasm of breast (principal)
CPT/HCPCS: 77063; 77067

== ENCOUNTER 2025-02-04 21:43 | Emergency (ER) | payer BC, SELFPAY ==
--- NOTE | ~2025-02-04 | CT_ITS ---
CT abdomen pelvis w con Clinical History: ruq pain to back . Comparison: None Technique: Axial images lung bases to symphysis pubis 100 mL Omnipaque 350 Coronal, sagittal reformats CT images acquired with automatic exposure control for dose reduction DLP: 1511 mGy-cm Findings: Lung bases: Clear. Visualized heart and pericardium: Unremarkable. Liver: Enlarged. Steatosis. Gallbladder: Removed. Spleen: Unremarkable. Pancreas: Unremarkable. Adrenal glands: Unremarkable. Kidneys: Right kidney- No hydronephrosis. No renal stones. 22 mm rim calcified aneurysm near hilum. Left kidney- No hydronephrosis. No renal stones. Distal esophagus/stomach: Unremarkable. Small bowel loops: Normal caliber and wall thickness. Colon: Normal caliber and wall thickness. Normal RLQ appendix. Nodes: No enlarged nodes. Peritoneum: No ascites. No free air. Urinary bladder: Unremarkable. Uterus: Removed. Adnexa: No masses. Bones: No acute bony abnormality. Soft tissues: Unremarkable. Aorta: No aneurysm or dissection. IVC: Unremarkable. Main portal vein/SMV/splenic vein: Patent. Findings discussed via telephone by myself with Dr. Tejeda at 8:36 AM EST. IMPRESSION: 1. No acute findings. 2. 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 Recommend endovascular consultation for surveillance and/or management. Reviewed, dictated and finalized at location R. IMPRESSION: 1. No acute findings. 2. 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 Recommend endovascular co nsultation for surveillance and/or management.
--- OUTSIDE RECORDS SUMMARY | 2025-02-04 21:45 | XMS_ITS | Clinical Summary ---
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 Gender Identity Not on file Sexual Orientation [...] of 2) 2020 COVID-19 Vaccine (1 - 2024-2 6 season) 2024 Influenza Adult (#1) 2025 Hepatitis A Vaccines Aged Out No long er eligible based on patient's age to complete this topic Meningococcal B Vaccine Aged Out No l onger eligible based on patient's age to complete this topic Meningococcal Vaccine Aged Out No tiarra galen eligible based on patient's age to complete this topic RSV Immunizations Under 20 Months Aged Out No longer eligible based on patient's age to complete this topic [place] [address] [facility]
--- OUTSIDE RECORDS SUMMARY | 2025-02-04 21:45 | XMS_ITS | Encounter Summary ---
Author Organization [facility] Address [address] [place] [address] Phone Care Team Providers Care Pick Up Operator Name Role Phone Jayy Harrison Primary Care Provider [phone] Luke Velasco MD Unavailable [phone] Encounter Details Date Type Department Care Team (Late st Contact Info) Description 03/31/2021 Telephone [facility] [address] [address] Luke Velasco MD [address] [facility] [place] [address] [address] Social History Tobacco Use Types [...] SHOW, CALLED PT LEFT V/M, LETTER SENT NOLOGY LEAD documented in this encounter Plan of Treatment Not on file documented as of this encounter Visit Diagnoses Not on filedocumented in this encounter Additional Health Concerns Assessment Noted Time PHQ-9 Depression Total Score: 0 12/31/19 10:36 AM CDT documented as of this encounter Care Teams Pick Up Operator Relationship Specialty Start Date End Date Jayy Harrison [address] [facility] [address] PCP - General Family Medicine 11/09/20 Luke Velasco MD [address] [place] [address] Consulting Physician Oncology 11/09/20 documented as of this encounter
--- OUTSIDE RECORDS SUMMARY | 2025-02-04 21:45 | XMS_ITS | Clinical Summary ---
Author Organization [facility] Address [address] [place] [address] Care Team Providers Care Manager Enrollment Name Role Phone Jayy Harrison MD Primary Care Provider Source Comments [facility],non-owned Affiliates and Associated Physician Practices is amultiple site organization consisting of ambulatory clinics and hospital sitesin [place], [place], [place] and [place]. This disclosure is being madepursuant to the Care Everywhere program and may not contain all information available regarding this patient. Last updated 18.[employer] Allergies Active Allergy Reactions Criticality Noted Date [...] on file Legal Sex Female 5:35 PM MANAGER CALL Gender Identity Not on file Sexual Orientation [...] 2020 ZOSTER VACCINE (1 of 2) 2020 DEPRESSION SCREENING 04/16/2024 COVID-19 VACCINE ( - 2023-2 5 season) 2024 INFLUENZA VACCINE (#1) 2024 DTAP/TDAP/TD VACCINES (2 [...] patient's age to complete this topic Insurance [facility] Care Teams Manager Enrollment Relationship Specialty Start Date End Date Jayy Harrison MD [address] [place] [address] PCP - General 08/07/16
--- OUTSIDE RECORDS SUMMARY | 2025-02-04 21:45 | XMS_ITS | Clinical Summary ---
Author Organization [facility] Address [address], [facility] [address] [place] [address] Phone Care Team Providers Care Baggage Handling Supervisor Name Role Phone Jayy Harrison Primary Care Provider [phone] Luke Velasco MD Unavailable [phone] Allergies Active Allergy Reactions Criticality Noted Date [...] 2020 Zoster Immunization (1 of 2) 2020 Influenza Immunization (#1) 2024 SARS-COV-2 Immunization (3 - 2024- season) 2024 12/03/2020, 11/11/2020 Respiratory Syncytial Virus (RSV) Immunization (Adult) (1 [...] patient's age to complete [place] [address] [facility] Care Teams Baggage Handling Supervisor Relationship Specialty Start Date End Date Jayy Harrison [address] [place] [address] PCP - General Family Medicine 11/09/20 Luke Velasco MD [address] [place] [phone] Consulting Physician Oncology 11/09/20
[2025-02-04 21:46] VITALS: BP 187/97; PULSE 84; RESP 18; TEMP 36.8; O2SAT 100
[2025-02-04 22:12] LABS: BEDSIDEPREGUCG Negative (Negative)
[2025-02-04 22:15] LABS: Hematocrit 45.1 % (37.0-47.0); Hemoglobin 14.9 g/dL (12.0-15.0); Immature Granulocyte Percent A 0.2 % (0-0.5); Lymphocytes Absolute Auto 2.57 K/mm3 (0.9-3.2); Mean Corpuscular HGB Conc 33.0 g/dl (32-36); Mean Corpuscular Hemoglobin 29.6 pg (26-34); Mean Corpuscular Volume 89.7 fl (80-100); Nucleated Red Blood Cells Absolute Auto 0.000 K/mm3 (0.0-0.012); Nucleated Red Blood Cells Perc 0.0 % (0.0-0.2); Platelet Count Result 236 k/mm3 (150-375); Red Blood Count 5.03 M/mm3 (4.2-5.4); White Blood Count 5.2 K/mm3 (4.5-10.0)
[2025-02-04 22:18] LABS: Add Urine Microscopic? YES; Appearance Urine Clear (Clear); Glucose Urine UA Negative (Negative); Leukocyte Esterase Ur Negative LEU/UL (Negative); Nitrate Urine Negative (Negative); Non Pathogenic Casts 0-2; Specific Grav Ur 1.011 (1.001-1.035)
[2025-02-04 22:25] LABS: Alanine Aminotransferase 36 U/L (6-35); Albumin Level 4.7 g/dL (3.5-5.1); Alkaline Phosphatase 127 U/L (38-126); Anion Gap 7 mmol/L (4-12); Aspartate Amino Transferase 37 U/L (14-36); Bilirubin,Total 1.2 mg/dL (0.2-1.3); Blood Urea Nitrogen 11 mg/dL (7-17); Calcium 10.0 mg/dL (8.4-10.2); Carbon Dioxide 29 mmol/L (22-30); Chloride 102 mmol/L (98-107); Estimated CRCL calculation 84 ml/min; Estimated Glomerular Filt Rate > 60; Glucose 125 mg/dL (65-110); Lipase 67 U/L (23-300); Potassium 3.9 mmol/L (3.4-5.0); Sodium 138 mmol/L (137-145); Total Protein 8.1 g/dL (6.3-8.2)
--- OUTSIDE RECORDS SUMMARY | 2025-02-04 22:34 | XMS_ITS | Clinical Summary ---
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 [place] [address] [facility]
--- OUTSIDE RECORDS SUMMARY | 2025-02-04 22:34 | XMS_ITS | Clinical Summary ---
Author Organization [facility] Address [address], [facility] [address] [place] [address] Phone Care Team Providers Care Bilingual Middle School Teacher Name Role Phone Jayy Harrison Primary Care Provider [phone] Luke Velasco MD Unavailable [phone] Allergies Active Allergy Reactions Criticality Noted Date [...] patient's age to complete [place] [address] [facility] Care Teams Bilingual Middle School Teacher Relationship Specialty Start Date End Date Jayy Harrison [address] [place] [address] PCP - General Family Medicine 11/09/20 Luke Velasco MD [address] [place] [phone] Consulting Physician Oncology 11/09/20
--- OUTSIDE RECORDS SUMMARY | 2025-02-04 22:34 | XMS_ITS | Encounter Summary ---
Author Organization [facility] Address [address] [place] [address] Phone Care Team Providers Care Pesticide Chemist Name Role Phone Jayy Harrison Primary Care Provider [phone] Luke Velasco MD Unavailable [phone] Encounter Details Date Type Department Care Team (Late st Contact Info) Description 03/31/2021 Telephone [facility] [address] [address] Luke Velasco MD [address] [facility] [place] [address] [address] Social History Tobacco Use Types [...] SHOW, CALLED PT LEFT V/M, LETTER SENT INE CAGE MAKER documented in this encounter Plan of Treatment Not on file documented as of this encounter Visit Diagnoses Not on filedocumented in this encounter Additional Health Concerns Assessment Noted Time PHQ-9 Depression Total Score: 0 12/31/19 10:36 AM CDT documented as of this encounter Care Teams Pesticide Chemist Relationship Specialty Start Date End Date Jayy Harrison [address] [facility] [place] [address] PCP - General Family Medicine 11/09/20 Luke Velasco MD [address] [place] [address] Consulting Physician Oncology 11/09/20 documented as of this encounter
--- OUTSIDE RECORDS SUMMARY | 2025-02-04 22:34 | XMS_ITS | Clinical Summary ---
Author Organization [facility] [employer] Address [address] [place] [address] Care Team Providers Care Tester Sound Name Role Phone Jayy Harrison MD Primary Care Provider [phone] Source Comments [facility] [employer],non-owned Affiliates and Associated Physician Practices is amultiple site organization consisting of ambulatory clinics and hospital sitesin [place], [place], [place] and [place]. This disclosure is being madepursuant to the Care Everywhere program and may not contain all information available regarding this patient. 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
[2025-02-04 22:37] VITALS: BP 128/90; PULSE 69; RESP 16; O2SAT 98
--- NOTE | 2025-02-04 22:37 | ED_ITS ---
HPI - Abdominal Pain General Chief Complaint: Abdominal Pain Stated Complaint: Stomach hurts into back Time Seen by Provider: 02/04/25 22:06 History of Present Illness HPI narrative: 54-year-old female with history of GERD, cholecystectomy 5 years ago. Chronic loose stools. Patient presents to the emergency department with 1 week of progressing right upper quadrant pain and distension. States the pain now wraps around her right flank and goes towards her back. Endorses some nausea without vomiting. Symptoms worsening for last week but she has not tried any medications as she prefers to not do medicine. Only changes to her habits and lifestyle recently are starting some vitamin supplements with magnesium and vitamin-D. Patient denies any fever chills. No traumatic injuries. No other surgeries. No weakness, urinary issues, fever chills. No chest pain difficulty in breathing. Was otherwise in her normal state of health. Related Data Home Medications ?Medication ?Instructions ?Recorded ?Confirmed ?Last Taken ?Type amlodipine 10 mg tablet 10 mg PO DAILY 07/26/2307/15 Unknown History paroxetine HCl 20 mg tablet 20 mg PO DAILY 07/26/23 Unknown History Allergies Allergy/AdvReac Type Severity Reaction Status Date / Time aspirin AdvReac Intermediate Nose Bleed Verified 02/04/25 21:44 Review of Systems 2 Review of Systems: As reviewed above in [facility] Past Medical History Medical History Anemia Anxiety Depression Bipolar disorder Arthritis Preeclampsia Fibroids Gestational hypertension GERD (gastroesophageal reflux disease) Surgical History Surgical History H/O: hysterectomy (~2014) Hx of tonsillectomy Family History Family History Father Cancer Mother Arthritis Heart disease Social History Social History Smoking status: Never smoker Alcohol intake: current Substance use: never Substance use type: does not use Lack of Transportation: No Lack of Food: Never True Current Housing: I Have Housing Concerned About Future Housing: No Difficulty Paying Gas/Electric Bills: No Difficulty Paying for Meds: No Currently Unemployed: No Education: Bachelor's Degree Difficulty w/ Childcare or Family Care: No Spiritual care concerns: No Exam 2 Narrative: GENERAL: [Well-appearing, well-nourished, and in no acute distress.] HEAD: [Normocephalic, atraumatic.] EYES: [PERRLA and EOMI.] ENT: Nares clear, no rhinorrhea or epistaxis. Mucous membranes moist. NECK: Supple. CHEST: [Clear to auscultation. No respiratory distress.] HEART: [Regular rate and rhythm]. No murmur heard. [Normal peripheral pulses.] ABDOMEN: Mildly distended but soft abdomen, tender to palpation the right upper quadrant and right flank, no CVA tenderness, no peritonitis EXTREMITIES: Normal range of motion. Nonpitting edema bilaterally SKIN: Warm, dry, no rash. NEURO: [No focal deficits]. Alert and oriented [x3.] PSYCH: [Normal mood and affect.] Course Vital Signs Vital signs: Vital Signs Temperature 36.8 C 02/04/25 21:46 Pulse Rate 84 02/04/25 21:46 Respiratory Rate 18 02/04/25 21:46 Blood Pressure 187/97 H 02/04/25 21:46 Pulse Oximetry 100 02/04/25 21:46 Oxygen Delivery Room Air 02/04/25 21:46 Temperature 36.6 C 02/05/25 01:39 Pulse Rate 64 02/05/25 01:39 Respiratory Rate 18 02/05/25 01:39 Blood Pressure 131/85 02/05/25 01:39 Pulse Oximetry 98 02/05/25 01:39 Oxygen Delivery Room Air 02/04/25 21:46 MDM - Abdominal Pain MDM Narrative Medical decision making narrative: 54-year-old female with history of GERD, cholecystectomy 5 years ago. Chronic loose stools. Patient presents to the emergency department with 1 week of progressing right upper quadrant pain and distension. States the pain now wraps around her right flank and goes towards her back. Endorses some nausea without vomiting. Symptoms worsening for last week but she has not tried any medications as she prefers to not do medicine. Only changes to her habits and lifestyle recently are starting some vitamin supplements with magnesium and vitamin-D. Patient denies any fever chills. No traumatic injuries. No other surgeries. No weakness, urinary issues, fever chills. No chest pain difficulty in breathing. Was otherwise in her normal state of health. Mildly distended but soft abdomen, tender to palpation the right upper quadrant and right flank, no CVA tenderness, no peritonitis. Patient has normal vital signs 128/90, pulse 69, afebrile, 98% on room air. Has some reproducible pain and tenderness on the right upper quadrant but no gallbladder which is reassuring but other potential etiologies include common bile duct dilation, common bile duct stone, pancreatitis, intra-abdominal infection or mass, urinary tract infection, kidney stone. Laboratory studies urinalysis ordered as well as a CT scan with contrast. She was given fluids and Zofran for her mild nausea and re-evaluated afterwards. Patient states the pain is really only present when she moves or sits up and at rest she is comfortable. Possible musculoskeletal irritation/injury as well. CT scan independently reviewed and I appreciate a calcified nodule next the right kidney, CT shows no acute findings. Does comment on a potential calcified lymph node versus calcified splenic vein. Unrelated to patient's symptomatology most likely given his calcified in chronic. Patient has normal laboratory studies. No significant LFT elevations. Normal kidney function. Normal urinalysis and unremarkable vital signs. Discussed with her potential for musculoskeletal etiology of the pain especially as it is only present when she moves and recommendations currently are for high strength anti-inflammatories of around the clock and follow-up with PCP. She was given strict return precautions and safe for discharge home at this time. We did discuss the incidental findings on her CT scan as well. Medical Records Attestation: I reviewed the patient's medical records. Lab Data Attestation: I reviewed the patient's lab results. 02/04/25 22:09 02/04/25 22:09 Labs: Lab Results 02/04/25 02/04/25 Range/Units 22:06 22:09 WBC 5.2 (4.5-10.0) K/mm3 RBC 5.03 (4.2-5.4) M/mm3 Hgb 14.9 (12.0-15.0) g/dL Hct 45.1 (37.0-47.0) % MCV 89.7 (80-100) fl MCH 29.6 (26-34) pg MCHC 33.0 (32-36) g/dl RDW 12.4 (11.5-14.5) % Plt Count 236 (150-375) k/mm3 MPV 10.5 H (7.4-10.4) fl Immature Gran % (Auto) 0.2 (0-0.5) % Neut % (Auto) 41.8 L (45.5-73.1) % Lymph % (Auto) 49.0 H (18.3-44.2) % Evans % (Auto) 5.9 (2.6-8.5) % Eos % (Auto) 2.5 (0-4.4) % Baso % (Auto) 0.6 (0.2-1.2) % Lymph # (Auto) 2.57 (0.9-3.2) K/mm3 Evans # (Auto) 0.3 (0.1-0.6) K/mm3 Eos # (Auto) 0.1 (0-0.3) K/mm3 Baso # (Auto) 0.0 (0.0-0.1) K/mm3 Abs Immat Gran (auto) 0.01 (0.00-0.031) K/mm3 Absolute Neuts (auto) 2.2 (1.3-6.7) K/mm3 Absolute Nucleated RBC 0.000 (0.0-0.012) K/mm3 Nucleated RBC % 0.0 (0.0-0.2) % Sodium 138 (137-145) mmol/L Potassium 3.9 (3.4-5.0) mmol/L Chloride 102 (98-107) mmol/L Carbon Dioxide 29 (22-30) mmol/L Anion Gap 7 (4-12) mmol/L BUN 11 (7-17) mg/dL Creatinine 0.90 (0.7-1.0) mg/dL Estim Creat Clear Calc 84 ml/min Estimated GFR > 60 (59 - ) Glucose 125 H (65-110) mg/dL Calcium 10.0 (8.4-10.2) mg/dL Total Bilirubin 1.2 (0.2-1.3) mg/dL AST 37 H (14-36) U/L ALT 36 H (6-35) U/L Alkaline Phosphatase 127 H (38-126) U/L Total Protein 8.1 (6.3-8.2) g/dL Albumin 4.7 (3.5-5.1) g/dL Lipase 67 (23-300) U/L Urine Color Yellow (Yellow) Urine Appearance Clear (Clear) Urine pH 6.5 (5.0-9.0) Ur Specific [place] 1.011 (1.001-1.035) Urine Protein Trace (Negative) mg/dL Urine Glucose (UA) Negative (Negative) mg/dL Urine Ketones Negative (Negative) mg/dL Ur Blood (Man) Negative (Negative) Urine Nitrate Negative (Negative) Urine Bilirubin Negative (Negative) Urine Urobilinogen 0.2 (<2.0) mg/dL Leukocyte Esterase Rfl Negative (Negative) AJ/UL Urine RBC 0-2 (0-2) /hpf Urine WBC 0-5 (0-3) /hpf Ur Squamous Epith Cells None seen (Few) /hpf Urine Bacteria None seen /hpf Urine Casts 0-2 POC Urine HCG, Qual Negative (Negative) Imaging Data Attestation: I personally reviewed and interpreted this imaging study as follows: My impression: No acute intra-abdominal findings Discharge Plan Discharge Clinical Impression: Intermittent right upper quadrant abdominal pain Patient Disposition: Home Condition: Stable Instructions: Antibiotic Form Additional Instructions: Laboratory studies are reassuring and unremarkable. CT scan shows no acute findings. Recommendations are to take high-dose anti-inflammatories for the next few days to see if this improves her symptoms. 800 mg ibuprofen and 1000 mg of Tylenol every 8 hours alternating or together. Return with any emergent concerns otherwise follow-up with regular primary doctor. Patient Language: [place] Prescriptions: No Action amlodipine 10 mg tablet 10 mg PO DAILY paroxetine HCl 20 mg tablet 20 mg PO DAILY prednisone 20 mg tablet 40 mg PO DAILY 5 Days Qty: 10 0RF pseudoephedrine HCl [12 Hour Decongestant] 120 mg tablet extended release 120 mg PO Q12H PRN (Reason: nasal congestion) Qty: 20 0RF promethazine-DM 6.25-15 mg/5 mL syrup 5 ml PO Q4-6H PRN (Reason: cough) Qty: 120 0RF atorvastatin [Lipitor] 40 mg tablet 40 mg PO DAILY Qty: 30 0RF Follow-up/Referrals: Jayy Harrison MD [Primary Care Provider, [facility]] Time of Disposition: 01:27
[2025-02-04] MEDS: ONDANSETRON INJ 4 MG/2 ML VIAL IV PUSH (22:42)
[2025-02-04] MEDS: LACTATED RINGERS 1,000 ML 999 ML IV CONT (22:42)
[2025-02-04 23:58] VITALS: BP 160/98; PULSE 65; RESP 16; TEMP 36.6; O2SAT 98
[2025-02-05 01:39] VITALS: BP 131/85; PULSE 64; RESP 18; TEMP 36.6; O2SAT 98
== END 2025-02-05 01:40 | disposition home or self-care (01) ==
PROVIDERS: Emergency Provider Student in an Organized Health Care Education/Training Program; PCP Emergency Medicine
DX: I72.2 Aneurysm of renal artery (principal); K21.9 Gastro-esophageal reflux disease without esophagitis; F41.9 Anxiety disorder, unspecified; F31.9 Bipolar disorder, unspecified; Z86.2 Personal history of diseases of the blood and blood-forming organs and certain disorders involving the immune mechanism; Z90.49 Acquired absence of other specified parts of digestive tract; Z90.710 Acquired absence of both cervix and uterus
CPT/HCPCS: 36415; 74177; 80053; 81001; 81025; 83690; 85025; 96361; 96374; 99284; J2405; J7120; Q9967